=== PATIENT | male | born 1960 | race Caucasian/White ===

== ENCOUNTER 2020-02-25 11:52 | Outpatient (REF) | payer OTHER, SELFPAY ==
--- NOTE | 2020-02-25 12:33 | XR_ITS ---
EXAMINATION: CHEST AND LEFT HIP: CLINICAL INFORMATION: Back pain. Trochanteric bursitis left hip COMPARISON: None TECHNIQUE: Chest 2 views. Left hip 2 views. FINDINGS: CHEST: The lungs are well-expanded and clear of acute process. The heart size and pulmonary vascularity is normal. No gross bony abnormality seen. LEFT HIP: No visible acute fracture, dislocation or subluxation seen. There is mild loss of left hip joint space with periarticular spurring. The soft tissues are normal. XR/XR hip LT min 2V IMPRESSION: Unremarkable chest exam. Mild degenerative changes left hip joint.
--- NOTE | 2020-02-25 12:33 | XR_ITS ---
EXAMINATION: CHEST AND LEFT HIP: CLINICAL INFORMATION: Back pain. Trochanteric bursitis left hip COMPARISON: None TECHNIQUE: Chest 2 views. Left hip 2 views. FINDINGS: CHEST: The lungs are well-expanded and clear of acute process. The heart size and pulmonary vascularity is normal. No gross bony abnormality seen. LEFT HIP: No visible acute fracture, dislocation or subluxation seen. There is mild loss of left hip joint space with periarticular spurring. The soft tissues are normal. XR/XR chest 2V IMPRESSION: Unremarkable chest exam. Mild degenerative changes left hip joint.
[2020-02-25 13:12] LABS: MANUAL DIFF FLAG NO
[2020-02-25 13:20] LABS: Basophils Absolute Auto 0.1 X10*3/uL (0.0-0.2); Basophils Percent Auto 1.3 % (0-2); Eosinophils Absolute Auto 0.1 X10*3/uL (0.0-0.4); Hematocrit 46.5 % (42-52); Hemoglobin 14.2 g/dl (14.0-18.0); Imm Gran Abs Auto 0.03 X10*3/uL (0.00-0.03); Imm Gran Pct Auto 0.5 % (0.0-0.4); Lymphocytes Absolute Auto 1.6 X10*3/uL (1.2-4.9); Lymphocytes Percent Auto 28.4 % (20-40); Mean Corpuscular HGB Conc 30.5 g/dl (31.0-36.0); Mean Corpuscular Hemoglobin 28.1 pg (27.0-33.0); Mean Corpuscular Volume 91.9 fL (80-98); Mean Platelet Volume 10.2 fL (9.4-12.4); Monocytes Absolute Auto 0.5 X10*3/uL (0.1-1.2); Monocytes Percent Auto 8.6 % (2-11); Neutrophils Absolute Auto 3.3 X10*3/uL (2.0-8.3); Neutrophils Percent Auto 59.2 % (45-73); Platelet Count 332 X10*3/uL (160-400); Red Blood Count 5.06 X10*6/uL (4.60-5.80); Red Cell Distribution Width 12.6 % (11.0-16.0); White Blood Count 5.5 X10*3/uL (4.8-10.8)
[2020-02-25 13:33] LABS: Estimated Average Glucose 108 mg/dL; Hemoglobin A1C 125.0825 umol/L; Hemoglobin A1c % 5.4 %
[2020-02-25 13:59] LABS: Alanine Aminotransferase 21 U/L (0-40); Albumin Level 4.4 g/dL (3.5-5.0); Alkaline Phosphatase 82 U/L (39-117); Anion Gap 13 (12-20); Aspartate Amino Transferase 16 U/L (5-37); Bilirubin Total 0.6 mg/dL (0.0-1.0); Blood Urea Nitrogen 14 mg/dL (9-16); Calcium 9.1 mg/dL (8.4-10.2); Carbon Dioxide 27 mmol/L (22-29); Chloride 106 mmol/L (96-108); Cholesterol 222 mg/dL; Estimated Glomerular Filt Rate > 60; Glucose Random 102 mg/dL (60-115); HDL Cholesterol 47 mg/dL; LDL Cholesterol Calculated 137 mg/dl; Potassium 4.8 mmol/l (3.3-5.1); Sodium 141 mmol/L (135-145); Total Protein 7.3 g/dL (6.5-8.0); Triglycerides 191 mg/dL
[2020-02-25 14:13] LABS: Free T4 (Free Thyroxine) 0.92 ng/dL (0.71-1.85); Thyroid Stimulating Hormone 1.79 uIU/mL (0.32-4.0)
[2020-02-25 14:25] LABS: Folate 6.7 ng/mL (> or = 4.0); Vitamin B12 400 pg/mL (200-900)
[2020-02-27 03:53] LABS: Follicle Stimulating Hormone 2.5 mIU/mL (1.6-8.0); Lutenizing Hormone 1.8 mIU/mL (1.5-9.3); Prolactin 6.9 ng/mL (2.0-18.0)
[2020-03-01 21:58] LABS: Testosterone, Total 218 ng/dL (250-1100)
== END 2020-02-25 11:53 | disposition home or self-care (01) ==
LOC: HO.LAB 11:52
PROVIDERS: PCP Internal Medicine; Visit Provider Internal Medicine
DX: E55.9 Vitamin D deficiency, unspecified (principal); E78.00 Pure hypercholesterolemia, unspecified; N52.9 Male erectile dysfunction, unspecified; R73.01 Impaired fasting glucose; E66.01 Morbid (severe) obesity due to excess calories; M25.552 Pain in left hip; M54.5 Low back pain; Z68.41 Body mass index [BMI] 40.0-44.9, adult
CPT/HCPCS: 36415; 71046; 73502; 80053; 80061; 82607; 82746; 83001; 83002; 83036; 84146; 84403; 84439; 84443; 85025

== ENCOUNTER → 2020-05-22 14:15 | Outpatient (BNVA) | payer OTHER, SELFPAY | PROVIDERS: PCP Internal Medicine; Visit Provider Urology | DX: Z13.89 Encounter for screening for other disorder (principal) | CPT/HCPCS: 99212 ==

== ENCOUNTER 2021-06-03 09:04 | Outpatient (REF) | payer OTHER, SELFPAY ==
[2021-06-03 09:25] LABS: MANUAL DIFF FLAG NO
[2021-06-03 09:44] LABS: Basophils Absolute Auto 0.1 X10*3/uL (0.0-0.2); Basophils Percent Auto 0.9 % (0-2); Eosinophils Absolute Auto 0.1 X10*3/uL (0.0-0.4); Eosinophils Percent Auto 2.1 % (0-4); Hematocrit 44.7 % (42.0-52.0); Hemoglobin 13.8 g/dl (14.0-18.0); Imm Gran Abs Auto 0.04 X10*3/uL (0.00-0.03); Imm Gran Pct Auto 0.7 % (0.0-0.4); Lymphocytes Absolute Auto 1.5 X10*3/uL (1.2-4.9); Lymphocytes Percent Auto 26.2 % (20-40); Mean Corpuscular HGB Conc 30.9 g/dl (31.0-36.0); Mean Corpuscular Hemoglobin 27.7 pg (27.0-33.0); Mean Corpuscular Volume 89.8 fL (80.0-98.0); Mean Platelet Volume 9.6 fL (9.4-12.4); Monocytes Absolute Auto 0.5 X10*3/uL (0.1-1.2); Monocytes Percent Auto 7.9 % (2-11); Neutrophils Absolute Auto 3.6 x10*3/uL (2.0-8.3); Neutrophils Percent Auto 62.2 % (45-73); Platelet Count 332 X10*3/uL (160-400); Red Blood Count 4.98 X10*6/uL (4.60-5.80); Red Cell Distribution Width 12.4 % (11.0-16.0); White Blood Count 5.8 X10*3/uL (4.8-10.8)
[2021-06-03 10:22] LABS: Estimated Average Glucose 128 mg/dL; Hemoglobin A1c % 6.1 %
[2021-06-03 10:32] LABS: Alanine Aminotransferase 21 U/L (0-40); Albumin Level 4.1 g/dL (3.5-5.0); Alkaline Phosphatase 83 U/L (39-117); Anion Gap 13 (12-20); Aspartate Amino Transferase 16 U/L (5-37); Bilirubin Total 0.7 mg/dL (0.0-1.0); Blood Urea Nitrogen 15 mg/dL (9-16); Calcium 9.2 mg/dL (8.4-10.2); Carbon Dioxide 23 mmol/L (22-29); Chloride 106 mmol/L (96-108); Cholesterol 207 mg/dL; Estimated Glomerular Filt Rate > 60; Glucose Random 133 mg/dL (60-115); HDL Cholesterol 43 mg/dL; LDL Cholesterol Calculated 127 mg/dl; Potassium 4.3 mmol/L (3.3-5.1); Sodium 138 mmol/L (135-145); Triglycerides 188 mg/dL
[2021-06-03 10:42] LABS: Free T4 (Free Thyroxine) 1.01 ng/dL (0.71-1.85)
[2021-06-03 10:58] LABS: Folate 10.1 ng/mL (> or = 4.0); Vitamin B12 312 pg/mL (200-900)
[2021-06-10 13:21] LABS: Testosterone, Free 43.7 pg/mL (35.0-155.0); Testosterone, Total 195 ng/dL (250-1100)
== END 2021-06-03 09:05 | disposition home or self-care (01) ==
LOC: HO.LAB 09:04
PROVIDERS: PCP Internal Medicine; Visit Provider Internal Medicine
DX: E78.00 Pure hypercholesterolemia, unspecified (principal); N52.8 Other male erectile dysfunction; R73.01 Impaired fasting glucose
CPT/HCPCS: 36415; 80053; 80061; 82607; 82746; 83036; 84402; 84403; 84439; 84443; 85025

== ENCOUNTER 2021-07-02 08:04 | Outpatient (REF) | payer OTHER, SELFPAY ==
--- NOTE | ~2021-07-02 | XR_ITS ---
EXAMINATION: AP PELVIS AND LEFT HIP. CLINICAL INFORMATION: Pain left hip. COMPARISON: None TECHNIQUE: AP pelvis one view and left hip 2 views FINDINGS: There is mild loss of left hip joint space. The right hip joint space is maintained. There is no fracture dislocation involving the left hip or AP pelvis exam. The SI joints are symmetrical. The soft tissues are normal. XR/XR pelvis 1-2V IMPRESSION: Degenerative arthritic changes left hip joint. No visible acute fracture or dislocation seen.
--- NOTE | ~2021-07-02 | XR_ITS ---
EXAMINATION: AP PELVIS AND LEFT HIP. CLINICAL INFORMATION: Pain left hip. COMPARISON: None TECHNIQUE: AP pelvis one view and left hip 2 views FINDINGS: There is mild loss of left hip joint space. The right hip joint space is maintained. There is no fracture dislocation involving the left hip or AP pelvis exam. The SI joints are symmetrical. The soft tissues are normal. XR/XR hip LT min 2V IMPRESSION: Degenerative arthritic changes left hip joint. No visible acute fracture or dislocation seen.
== END 2021-07-02 08:05 | disposition home or self-care (01) ==
LOC: HO.HOSX 08:04
PROVIDERS: PCP Internal Medicine; Visit Provider Physician Assistant
DX: M16.12 Unilateral primary osteoarthritis, left hip (principal)
CPT/HCPCS: 72170; 73502; 99202

== ENCOUNTER 2022-07-07 12:51 | Outpatient (REF) | payer OTHER, SELFPAY ==
[2022-07-07 13:03] LABS: MANUAL DIFF FLAG NO
[2022-07-07 13:29] LABS: Basophils Absolute Auto 0.1 X10*3/uL (0.0-0.2); Basophils Percent Auto 1.1 % (0-2); Eosinophils Absolute Auto 0.1 X10*3/uL (0.0-0.4); Eosinophils Percent Auto 1.9 % (0-4); Hematocrit 43.7 % (42.0-52.0); Hemoglobin 13.7 g/dl (14.0-18.0); Imm Gran Abs Auto 0.03 X10*3/uL (0.00-0.03); Imm Gran Pct Auto 0.5 % (0.0-0.4); Immature Retic Fraction 14.2 % (2.3-13.4); Lymphocytes Absolute Auto 1.7 X10*3/uL (1.2-4.9); Lymphocytes Percent Auto 27.8 % (20-40); Mean Corpuscular HGB Conc 31.4 g/dl (31.0-36.0); Mean Corpuscular Hemoglobin 28.1 pg (27.0-33.0); Mean Corpuscular Volume 89.7 fL (80.0-98.0); Mean Platelet Volume 9.7 fL (9.4-12.4); Monocytes Absolute Auto 0.6 X10*3/uL (0.1-1.2); Neutrophils Absolute Auto 3.6 x10*3/uL (2.0-8.3); Neutrophils Percent Auto 58.7 % (45-73); Platelet Count 304 X10*3/uL (160-400); Red Blood Count 4.87 X10*6/uL (4.60-5.80); Red Cell Distribution Width 12.5 % (11.0-16.0); Reticulocyte Percent 2.1 % (0.5-1.8); Reticulocytes Absolute 0.102 X10*6/uL (0.026-0.095); White Blood Count 6.2 X10*3/uL (4.8-10.8)
[2022-07-07 14:30] LABS: Creatinine Urine 173.05 mg/dL; Microalbum/Creatinine Ratio Ur 6.9 ug/mg cr
[2022-07-07 14:43] LABS: Alanine Aminotransferase 17 U/L (0-40); Alkaline Phosphatase 75 U/L (39-117); Anion Gap 12 (12-20); Aspartate Amino Transferase 17 U/L (5-37); Blood Urea Nitrogen 12 mg/dL (9-16); Calcium 9.2 mg/dL (8.4-10.2); Carbon Dioxide 24 mmol/L (22-29); Chloride 109 mmol/L (96-108); Cholesterol 213 mg/dL; Estimated Glomerular Filt Rate > 60; Glucose Random 106 mg/dL (60-115); HDL Cholesterol 43 mg/dL; Iron 116 mcg/dL (45-160); LDL Cholesterol Calculated 143 mg/dl; Percent Iron Saturation 35 % (15-50); Potassium 4.3 mmol/L (3.3-5.1); Sodium 141 mmol/L (135-145); Total Iron Binding Capacity 333 mcg/dL (228-428); Total Protein 6.8 g/dL (6.5-8.0); Triglycerides 135 mg/dL; Unsaturated Iron Binding 217 ug/dL
[2022-07-07 15:01] LABS: Ferritin 101 ng/mL (20-250); Folate 7.2 ng/mL (> or = 4.0); Thyroid Stimulating Hormone 2.38 uIU/mL (0.32-4.0); Vitamin B12 299 pg/mL (200-900)
== END 2022-07-07 12:52 | disposition home or self-care (01) ==
LOC: HO.LAB 12:51
PROVIDERS: PCP Internal Medicine; Visit Provider Internal Medicine
DX: E11.65 Type 2 diabetes mellitus with hyperglycemia (principal); D64.9 Anemia, unspecified; E78.00 Pure hypercholesterolemia, unspecified
CPT/HCPCS: 36415; 80053; 80061; 82043; 82607; 82728; 82746; 83540; 84439; 84443; 85025; 85045

== ENCOUNTER 2023-02-09 10:09 | Outpatient (AMB) | payer OTHER, SELFPAY ==
[2023-02-09 10:10] VITALS: BP 138/90; PULSE 89; O2SAT 97; BMI 39.4
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
== END 2023-02-09 10:49 | disposition home or self-care (01) ==
PROVIDERS: PCP Internal Medicine; Visit Provider Nurse Practitioner Family
DX: M25.512 Pain in left shoulder (principal); M54.9 Dorsalgia, unspecified; V89.2XXA Person injured in unspecified motor-vehicle accident, traffic, initial encounter; Z04.3 Encounter for examination and observation following other accident
CPT/HCPCS: 99213

== ENCOUNTER 2023-02-13 09:20 | Outpatient (REF) | payer OTHER, SELFPAY ==
--- NOTE | ~2023-02-13 | XR_ITS ---
EXAMINATION: XR SHOULDER, LEFT CLINICAL INFORMATION: Pain in left shoulder COMPARISON: None available. TECHNIQUE: AP external rotation, Grashey, scapular Y, and axillary views of the left shoulder. FINDINGS: The bones are intact no fracture. Glenohumeral and acromioclavicular alignment is anatomic with normal glenohumeral joint space. Moderate degenerative change of acromioclavicular joint. No abnormal soft tissue calcifications. XR/XR shoulder LT min 2V IMPRESSION: Moderate degenerative change of the acromioclavicular joint.
--- NOTE | ~2023-02-13 | XR_ITS ---
EXAMINATION: XR THORACIC SPINE XR LUMBAR SPINE CLINICAL INFORMATION: Back pain. COMPARISON: Radiograph pelvis 07/02/2021. Radiographic chest 02/25/2020. Radiograph lumbar spine 12/23/2011. TECHNIQUE: 3 views of the thoracic spine and 3 views of the lumbar spine. FINDINGS: Thoracic Spine: Mild rightward curvature of the thoracic spine. Degenerative changes on limited images of the cervical spine could be evaluated with dedicated cervical spine images. Multilevel degenerative changes with mild hypertrophic change most notable in the pow-an-mumhs thoracic spine. Lumbar Spine: Slight leftward curvature of the lumbar spine. Facet arthritis in the dro-sn-fngga lumbar spine. Straightening of the normal lumbar lordosis. Advanced multilevel degenerative changes with multilevel loss of disc space height moderate to marked at L4-L5 and L5-S1. Rounded calcification in the right hemipelvis, likely vascular. Minimally imaged portion of left hip again demonstrate advanced degenerative changes which should be evaluated with dedicated radiographs of the hip. XR/XR lumbar spine 2-3V IMPRESSION: 1. Moderate multilevel degenerative disc disease most notable in the rty-wg-mklqs thoracic spine. 2. Advanced multilevel degenerative disc disease most notable at L4-L5 and L5-S1. 3. Facet arthritis in the dip-xz-iaiuo lumbar spine. 4. Degenerative changes on limited images of the cervical spine could be evaluated with dedicated cervical spine images.
--- NOTE | ~2023-02-13 | XR_ITS ---
EXAMINATION: XR THORACIC SPINE XR LUMBAR SPINE CLINICAL INFORMATION: Back pain. COMPARISON: Radiograph pelvis 07/02/2021. Radiographic chest 02/25/2020. Radiograph lumbar spine 12/23/2011. TECHNIQUE: 3 views of the thoracic spine and 3 views of the lumbar spine. FINDINGS: Thoracic Spine: Mild rightward curvature of the thoracic spine. Degenerative changes on limited images of the cervical spine could be evaluated with dedicated cervical spine images. Multilevel degenerative changes with mild hypertrophic change most notable in the qey-sn-zquqo thoracic spine. Lumbar Spine: Slight leftward curvature of the lumbar spine. Facet arthritis in the gqh-ee-xvmhd lumbar spine. Straightening of the normal lumbar lordosis. Advanced multilevel degenerative changes with multilevel loss of disc space height moderate to marked at L4-L5 and L5-S1. Rounded calcification in the right hemipelvis, likely vascular. Minimally imaged portion of left hip again demonstrate advanced degenerative changes which should be evaluated with dedicated radiographs of the hip. XR/XR thoracic spine 3V IMPRESSION: 1. Moderate multilevel degenerative disc disease most notable in the rfk-xl-wvsxz thoracic spine. 2. Advanced multilevel degenerative disc disease most notable at L4-L5 and L5-S1. 3. Facet arthritis in the mds-jz-vegsu lumbar spine. 4. Degenerative changes on limited images of the cervical spine could be evaluated with dedicated cervical spine images.
== END 2023-02-13 09:21 | disposition home or self-care (01) ==
LOC: HO.XRAY 09:20
PROVIDERS: PCP Internal Medicine; Visit Provider Nurse Practitioner Family
DX: M25.512 Pain in left shoulder (principal); M54.9 Dorsalgia, unspecified
CPT/HCPCS: 72072; 72100; 73030

== ENCOUNTER 2023-03-08 08:12 | Outpatient (AMB) | payer SELFPAY ==
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
[2023-03-08 08:13] VITALS: BP 136/88; PULSE 94; O2SAT 97; BMI 39.7
== END 2023-03-08 09:14 | disposition home or self-care (01) ==
PROVIDERS: PCP Internal Medicine; Visit Provider Internal Medicine
DX: M19.012 Primary osteoarthritis, left shoulder (principal); M47.815 Spondylosis without myelopathy or radiculopathy, thoracolumbar region; V89.2XXA Person injured in unspecified motor-vehicle accident, traffic, initial encounter; M25.552 Pain in left hip
CPT/HCPCS: 99214

== ENCOUNTER 2023-03-08 09:39 | Outpatient (REF) | payer OTHER, SELFPAY ==
--- NOTE | ~2023-03-08 | XR_ITS ---
EXAMINATION: XR HIP, LEFT CLINICAL INFORMATION: Pain in the left hip COMPARISON: X-ray the left hip June 2021. TECHNIQUE: Two views of the left hip. FINDINGS: There is persistent up to high-grade cartilage loss in the superolateral aspect of the hip joint with associated marginal osteophytes subchondral cystic change in [id number] appearance. Surrounding bone and soft tissues unremarkable. XR/XR hip LT min 2V IMPRESSION: Advanced osteoarthritis of the left hip. Unchanged
== END 2023-03-08 09:40 | disposition home or self-care (01) ==
LOC: HO.XRAY 09:39
PROVIDERS: PCP Internal Medicine; Visit Provider Internal Medicine
DX: M25.552 Pain in left hip (principal)
CPT/HCPCS: 73502

== ENCOUNTER 2023-04-05 14:17 | Outpatient (AMB) | payer OTHER, SELFPAY ==
[2023-04-05 14:20] VITALS: BP 160/98; PULSE 105; O2SAT 95; BMI 40.1
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
== END 2023-04-05 15:22 | disposition home or self-care (01) ==
PROVIDERS: PCP Internal Medicine; Visit Provider Internal Medicine
DX: M25.512 Pain in left shoulder (principal); V89.2XXA Person injured in unspecified motor-vehicle accident, traffic, initial encounter; M25.552 Pain in left hip; E11.65 Type 2 diabetes mellitus with hyperglycemia
CPT/HCPCS: 83036; 99213

== ENCOUNTER 2023-05-03 12:28 | Outpatient (AMB) | payer OTHER, SELFPAY ==
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
[2023-05-03 12:50] VITALS: BP 152/92; PULSE 89; O2SAT 98; BMI 39.8
== END 2023-05-03 13:44 | disposition home or self-care (01) ==
PROVIDERS: PCP Internal Medicine; Visit Provider Internal Medicine
DX: M25.512 Pain in left shoulder (principal); M25.552 Pain in left hip; V89.2XXA Person injured in unspecified motor-vehicle accident, traffic, initial encounter
CPT/HCPCS: 99213

== ENCOUNTER 2023-06-09 11:08 | Outpatient (AMB) | payer OTHER, SELFPAY ==
[2023-06-09 11:10] VITALS: BP 134/90; PULSE 86; O2SAT 97; BMI 39.8
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
== END 2023-06-09 12:29 | disposition home or self-care (01) ==
PROVIDERS: PCP Internal Medicine; Visit Provider Internal Medicine
DX: M25.552 Pain in left hip (principal); M25.512 Pain in left shoulder; V89.2XXA Person injured in unspecified motor-vehicle accident, traffic, initial encounter; Z04.2 Encounter for examination and observation following work accident
CPT/HCPCS: 99213

== ENCOUNTER 2023-06-14 14:13 | Outpatient (AMB) | payer OTHER, SELFPAY ==
[2023-06-14 15:01] VITALS: BP 136/86; PULSE 94; RESP 16; O2SAT 97; BMI 39.1
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
== END 2023-06-14 15:33 | disposition home or self-care (01) ==
PROVIDERS: PCP Internal Medicine; Referring Provider Internal Medicine; Visit Provider Registered Nurse Emergency
DX: M19.012 Primary osteoarthritis, left shoulder (principal); M16.12 Unilateral primary osteoarthritis, left hip
CPT/HCPCS: 99204

== ENCOUNTER → 2023-06-14 14:13 | Outpatient (BNVA) | payer OTHER, SELFPAY | PROVIDERS: PCP Internal Medicine; Referring Provider Internal Medicine; Visit Provider Registered Nurse Emergency | DX: M19.012 Primary osteoarthritis, left shoulder (principal); M16.12 Unilateral primary osteoarthritis, left hip | CPT/HCPCS: 99202 ==

== ENCOUNTER 2023-07-13 14:06 | Outpatient (AMB) | payer OTHER, SELFPAY ==
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
[2023-07-13 14:48] VITALS: BP 128/78; PULSE 108; O2SAT 97; BMI 40.3
== END 2023-07-13 15:33 | disposition home or self-care (01) ==
PROVIDERS: PCP Internal Medicine; Visit Provider Internal Medicine
DX: E11.65 Type 2 diabetes mellitus with hyperglycemia (principal); E66.01 Morbid (severe) obesity due to excess calories; Z68.41 Body mass index [BMI] 40.0-44.9, adult; M16.12 Unilateral primary osteoarthritis, left hip; K21.9 Gastro-esophageal reflux disease without esophagitis; E78.00 Pure hypercholesterolemia, unspecified; H57.89 Other specified disorders of eye and adnexa
CPT/HCPCS: 83036; 99214

== ENCOUNTER 2023-07-18 09:30 | Outpatient (REF) | payer OTHER, SELFPAY ==
[2023-07-18 10:04] LABS: MANUAL DIFF FLAG NO
[2023-07-18 10:53] LABS: Basophils Absolute Auto 0.1 X10*3/uL (0.0-0.2); Basophils Percent Auto 1.3 % (0-2); Eosinophils Absolute Auto 0.2 X10*3/uL (0.0-0.4); Eosinophils Percent Auto 3.3 % (0-4); Hematocrit 44.4 % (42.0-52.0); Hemoglobin 14.1 g/dl (14.0-18.0); Imm Gran Abs Auto 0.03 X10*3/uL (0.00-0.03); Imm Gran Pct Auto 0.6 % (0.0-0.4); Immature Retic Fraction 23.9 % (2.3-13.4); Lymphocytes Absolute Auto 1.8 X10*3/uL (1.2-4.9); Lymphocytes Percent Auto 32.8 % (20-40); Mean Corpuscular HGB Conc 31.8 g/dl (31.0-36.0); Mean Corpuscular Hemoglobin 28.1 pg (27.0-33.0); Mean Corpuscular Volume 88.4 fL (80.0-98.0); Mean Platelet Volume 10.1 fL (9.4-12.4); Monocytes Absolute Auto 0.6 X10*3/uL (0.1-1.2); Monocytes Percent Auto 10.3 % (2-11); Neutrophils Absolute Auto 2.8 x10*3/uL (2.0-8.3); Neutrophils Percent Auto 51.7 % (45-73); Platelet Count 308 X10*3/uL (160-400); Red Blood Count 5.02 X10*6/uL (4.60-5.80); Red Cell Distribution Width 12.6 % (11.0-16.0); Retic HGB Equivalent 30.4 pg (30.0-35.0); Reticulocyte Percent 2.5 % (0.5-1.8); Reticulocytes Absolute 0.127 X10*6/uL (0.026-0.095); White Blood Count 5.4 X10*3/uL (4.8-10.8)
[2023-07-18 11:53] LABS: Alanine Aminotransferase 15 U/L (0-40); Albumin Level 4.1 g/dL (3.5-5.0); Alkaline Phosphatase 81 U/L (39-117); Anion Gap 15 (12-20); Aspartate Amino Transferase 14 U/L (5-37); Bilirubin Total 0.5 mg/dL (0.0-1.0); Blood Urea Nitrogen 15 mg/dL (9-16); Calcium 9.5 mg/dL (8.4-10.2); Carbon Dioxide 25 mmol/L (22-29); Chloride 105 mmol/L (96-108); Cholesterol 201 mg/dL (<200); Estimated Glomerular Filt Rate > 60; Glucose Random 183 mg/dL (60-115); HDL Cholesterol 46 mg/dL (>40); Iron 86 mcg/dL (45-160); LDL Cholesterol Calculated 128 mg/dL (<100); Percent Iron Saturation 26 % (15-50); Potassium 3.9 mmol/L (3.3-5.1); Sodium 141 mmol/L (135-145); Total Iron Binding Capacity 336 mcg/dL (228-428); Total Protein 7.5 g/dL (6.5-8.0); Triglycerides 139 mg/dL (<150); Unsaturated Iron Binding 250 ug/dL
[2023-07-18 11:53] LABS: Microalbum/Creatinine Ratio Ur 8.5 ug/mg cr (<30)
[2023-07-18 12:01] LABS: Ferritin 71 ng/mL (20-250); Folate 10.3 ng/mL (> or = 4.0); Free T4 (Free Thyroxine) 0.97 ng/dL (0.71-1.85); Thyroid Stimulating Hormone 3.29 uIU/mL (0.32-4.0); Vitamin B12 376 pg/mL (200-900)
== END 2023-07-18 09:31 | disposition home or self-care (01) ==
LOC: HO.LAB 09:30
PROVIDERS: PCP Internal Medicine; Visit Provider Internal Medicine
DX: E11.65 Type 2 diabetes mellitus with hyperglycemia (principal); E78.00 Pure hypercholesterolemia, unspecified; D64.9 Anemia, unspecified
CPT/HCPCS: 36415; 80053; 80061; 82043; 82570; 82607; 82728; 82746; 83540; 84439; 84443; 85025; 85045

== ENCOUNTER 2023-07-27 10:14 | Outpatient (REF) | payer OTHER, SELFPAY ==
--- NOTE | ~2023-07-27 | XR_ITS ---
EXAMINATION: XR PELVIS CLINICAL INFORMATION: Pain COMPARISON: Hip radiographs 03/08/2023 TECHNIQUE: AP view of the pelvis. FINDINGS: No acute fracture or dislocation. Advanced osteoarthritis of the left hip with complete loss of superolateral joint space, subchondral sclerosis and cystic change, similar to prior. Calcified phleboliths in the pelvis. Right hip and sacroiliac joint spaces are maintained. XR/XR pelvis 1-2V IMPRESSION: Advanced osteoarthritis of the left hip similar to prior.
== END 2023-07-27 10:15 | disposition home or self-care (01) ==
LOC: HO.HOSX 10:14
PROVIDERS: PCP Internal Medicine; Visit Provider Orthopaedic Surgery
DX: M16.12 Unilateral primary osteoarthritis, left hip (principal)
CPT/HCPCS: 72170; 99212

== ENCOUNTER 2023-07-27 10:14 | Outpatient (AMB) | payer OTHER, SELFPAY ==
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
[2023-07-27 10:33] VITALS: BMI 40.3
== END 2023-07-27 11:26 | disposition home or self-care (01) ==
PROVIDERS: PCP Internal Medicine; Visit Provider Orthopaedic Surgery
DX: M16.12 Unilateral primary osteoarthritis, left hip (principal)
CPT/HCPCS: 99214

== ENCOUNTER → 2023-08-21 09:12 | Outpatient (BNVA) | payer OTHER, SELFPAY | PROVIDERS: PCP Internal Medicine | DX: Z01.818 Encounter for other preprocedural examination (principal) ==

== ENCOUNTER → 2023-09-06 14:07 | Outpatient (BNV) | payer OTHER, SELFPAY | PROVIDERS: Admitting Provider Orthopaedic Surgery; PCP Internal Medicine; Visit Provider Internal Medicine Cardiovascular Disease | DX: Z01.818 Encounter for other preprocedural examination (principal) | CPT/HCPCS: 93010 ==

== ENCOUNTER 2023-09-11 08:58 | Outpatient (AMB) | payer OTHER, SELFPAY ==
[2023-09-11 09:06] VITALS: BP 140/82; PULSE 84; O2SAT 98; BMI 40.6
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
== END 2023-09-11 09:27 | disposition home or self-care (01) ==
PROVIDERS: PCP Internal Medicine
DX: M25.552 Pain in left hip (principal); Z01.818 Encounter for other preprocedural examination; Z04.3 Encounter for examination and observation following other accident
CPT/HCPCS: 99214

== ENCOUNTER 2023-09-14 13:57 | Outpatient (AMB) | payer OTHER, SELFPAY ==
--- NOTE | 2023-09-14 14:11 | MHC.OFFVIS ---
Intake Visit Reasons: Pre-Op: L MANE w/NE 09/19/23 Allergies No Known Allergies [No Known Allergies*] Allergy (Verified 09/14/23 14:13) Medication List - Last Reconciled 09/14/23 by Tushar Cervantes PA-C blood pressure monitor (Blood Pressure Kit) As directed blood sugar diagnostic (FreeStyle Lite Strips) As directed check the BS QD blood-glucose meter (FreeStyle Lite Meter kit) As directed cane As directed lancets (FreeStyle Lancets) As directed check BS QD HPI Comments Details: Mr Vicente presents to the office today for preop visit. He is scheduled for left total hip arthroplasty with Dr. Evans. He continues to have ongoing pain and difficulty with ambulation in the left hip, which is affecting his quality of life; therefore, he has elected to move forward with surgery. [facility] Medical History Arthritis Low back pain Mild heartburn Upper back pain on left side Impaired fasting blood sugar Hypercholesterolemia Vitamin D deficiency Obesity Anemia Surgical History History of eye surgery History of colonoscopy Family History Father CVA (cerebral vascular accident) Mother No problems noted. 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 Cognitive needs: No Hearing needs: No Vision needs: No Review of Systems Const All systems reviewed & are unremarkable except as noted in HPI and below Physical Exam Const General: cooperative and no acute distress Orientation/consciousness: patient oriented x3 Neck Neck: Yes normal visual inspection and Yes no lymphadenopathy Resp Effort & Inspection: normal respiratory effort and able to speak in complete sentences Cardio Peripheral pulses: Peripheral pulses 2+ throughout GI Inspection: Yes normal to inspection Palpation (GI): Soft to palpation Skin General skin exam: no rashes or lesions noted Neuro General: patient oriented x3 Extrem Other: Left hip: Normal to inspection. No open wound or abrasion. He does have pain with ROM. Calf supple, nontender. NVI. Assessment & Plan Assessment & Plan (1) Osteoarthritis of left hip: Comment: Left hip February 2023 Code(s): M16.12 - Unilateral primary osteoarthritis, left hip Category: Medical Plan I discussed in detail the procedure and what to expect pre and post operatively. We discussed the risks, benefits and alternatives to the surgery as well as the rehabilitation course. The risks; which include, but are not limited to infection, bleeding, nerve injury, ongoing pain, swelling, and stiffness, perioperative risk of injury to bones and soft tissues, and blood clots. I?ve answered all questions and with their understanding they have consented to move forward with Left total hip arthroplasty with Dr. Evans Patient Instructions: Scribed for Tushar Cervantes PA-C, by Mickey Ford medical insurance coding specialist, on 09/14/2023 at 2:00 PM EST.? I, Tushar Cervantes PA-C, have personally reviewed and agree with the information entered by the scribe. Coding Level of Care Code Est Pt Level 3 (28560) Diagnoses Osteoarthritis of left hip M16.12
== END 2023-09-14 15:29 | disposition home or self-care (01) ==
PROVIDERS: PCP Internal Medicine; Visit Provider Physician Assistant
DX: M16.12 Unilateral primary osteoarthritis, left hip (principal)
CPT/HCPCS: 99024

== ENCOUNTER → 2023-09-14 13:57 | Outpatient (BNVA) | payer OTHER, SELFPAY | PROVIDERS: PCP Internal Medicine; Visit Provider Physician Assistant | DX: Z01.818 Encounter for other preprocedural examination (principal); M16.12 Unilateral primary osteoarthritis, left hip | CPT/HCPCS: 99212 ==

== ENCOUNTER 2023-09-19 09:47 | Inpatient (IN) | payer OTHER, SELFPAY ==
--- NOTE | 2023-09-06 | ECG_ITS ---
Test Reason : pre op Blood Pressure : / mmHG Vent. Rate : 095 BPM Atrial Rate : 095 BPM P-R Int : 166 ms QRS Dur : 094 ms QT Int : 356 ms P-R-T Axes : 050 018 001 degrees QTc Int : 447 ms Normal sinus rhythm Normal ECG When compared with ECG of 05-APR-2004 15:21, No significant change was found Referred By: Mindy Lehman Electronically Signed By:Floyd Fernandez
[2023-09-06 13:24] VITALS: BP 132/94; PULSE 97; RESP 16; O2SAT 95; BMI 40.6
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
[2023-09-11 11:55] LABS: MRSA Nasal PCR NEGATIVE (Negative); SA Nasal PCR NEGATIVE (Negative)
[2023-09-19] VITALS (12 sets, daily range): BP systolic 132–180; BP diastolic 74–105; PULSE 87–99; RESP 13–18; TEMP 36–37; O2SAT 93–97
--- NOTE | ~2023-09-19 | XR_ITS ---
EXAMINATION: XR PELVIS CLINICAL INFORMATION: Left total hip arthroplasty COMPARISON: 07/27/2023 TECHNIQUE: AP view of the pelvis. FINDINGS: Alignment is normal. The left femoral head prosthesis is well centered within the acetabular cup which exhibits normal lateral version. The tip of the noncemented femoral stem is well-positioned in the medullary cavity of the proximal femoral diaphysis. No endosteal scalloping or fracture around the femoral stem. There is mild postoperative soft tissue emphysema of the hip with lateral skin balta in place. The right hip is unremarkable. XR/XR pelvis 1-2V IMPRESSION: Satisfactory position and alignment of components of the left total hip arthroplasty. No periprosthetic fracture.
--- NOTE | 2023-09-19 09:43 | MHC.SHP ---
Pre-Procedural Eval Section A - 24 Hr Update-Section A only Date of Service: 09/19/23 The patient is an INPATIENT: No Changes since office visit: No Cold of Flu in the past 2 weeks, No New Medical Problems, No Changes in Medication and No Patient answered all questions The patient has been examined within 24 hours of the surgical procedure. The History & Physical has been completed within 30 days and I have reviewed it.: Yes Section B - Complete if H&P > 30 days Chief Complaint: Unilateral primary osteoarthritis, left hip Allergies: Allergies Allergy/AdvReac Type Severity Reaction Status Date / Time No Known Allergies Allergy Verified 09/14/23 14:13 [No Known Allergies*] Plan I have reviewed the history and physical and performed a pertinent physical examination on my patient. No changes have occurred unless specified. Time Spent With Patient Time: Total time managing care of this patient today ____ minutes.
[2023-09-19] MEDS: oxyCODONE HCl ER 10 MG TAB.ER.12H PO ×2 (10:07→20:59)
[2023-09-19] MEDS: Lactated Ringers 1,000 ML 100 ML IVCONT ×2 (10:40→19:32)
--- NOTE | 2023-09-19 17:00 | P.BOP_ITS ---
Brief Operative Note Date of Service: 09/19/23 Pre-op diagnosis: Left hip OA Post-op diagnosis: same Procedure: Left MANE Implants: Webber Trident 52/20 deg Accolade 2 #5 [id number] +0/36 ceramic Surgeon: Danny Evans MD Anesthesia: GETA and local Was an Certified Residential Medication Aide used for this Procedure?: No Certified Residential Medication Aide: Tushar Cervantes Estimated blood loss (mL): 250 IV fluids (mL): 1,100 Pathology: other Condition: stable Disposition: PACU Assessment and Plan (No Qualifiers) Assessment and Plan (1) Status post left hip replacement: Status: Acute Plan: Lovenox or Eliquis given BMI
--- NOTE | 2023-09-19 17:03 | W.PM.OPN ---
Operative Note Operative Note Date of Service: 09/19/23 Narrative: Date of Service: 09/19/23 Pre-op diagnosis: Left hip OA Post-op diagnosis: same Procedure: Left MANE Implants: [place] Trident 52/20 deg Accolade 2 #5 [id number] +0/36 ceramic Surgeon: Danny Evans MD Anesthesia: GETA and local Was an Maintenance Instructor used for this Procedure?: No Maintenance Instructor: Tushar Cervantes Estimated blood loss (mL): 250 IV fluids (mL): 1,100 Pathology: other Condition: stable Disposition: PACU Patient was brought into the operating room and placed in the right lateral decubitus position. All bony prominences were well padded and the limb was prepped and draped in standard sterile fashion. A time-out was called to identify proper site procedure proper surgeon IV antibiotics and 1 g of tranexamic acid were administered. I began by making a curvilinear incision over the posterolateral aspect of the greater trochanter. Dissection was taken down to the tensor fascia which was incised in line with the incision and a Charnley retractor was placed. Cautery was used to maintain hemostasis. The hip was internally rotated and the external rotators were identified. The vessels were cauterized and a full-thickness capsular/external rotator layer was developed starting just proximal to the piriformis. This layer was tagged and a dull Hohmann retractor was placed underneath the neck in the hip was dislocated. A neck cut was made 1 cm proximal to the lesser trochanter and the head and neck were removed and measured 48-49mm on the back table. The head was deformed and eburnated. I then removed the labrum and cauterized the fovea. I started with a 44 reamer and medialized to the inner table. I sequentially reamed up to a size 52 and impacted a 52mm cup at 45 degrees of inclination and 25 degrees of version. I then placed a 20 deg posterior lipped liner and turned my attention to the femur. I identified the piriformis insertion and used this as a starting point for my truman cutter. The medius tendon was protected with a Hibs retractor. A Charnley awl was inserted in the canal and a curved curette used to remove the lateral bone. I irrigated copiously. I then sequentially broached in the patient's natural version to a size 5 and placed my trial implants. I used a #5/127/+0 based on my pre-operative template. I removed all instrumentation and copiously irrigated. I placed my final femoral implant and again took the hip through range of motion and was satisfied with the stability and length. The final +0 implant was impacted in place and the hip reduced. I then irrigated copiously and placed 1 g of local tranexamic acid. I performed a capsular closure with 2.0 fiberwire, Britney's fascia with 0 Vicryl, subcuticular with 2-0 Vicryl and the skin with balta. Patient was placed into a sterile dressing. Patient was extubated brought to the recovery room in stable condition. There were no known complications.
[2023-09-19] MEDS: fentaNYL citrate/PF 100 MCG/2 ML VIAL 25 MCG IVPUSH ×4 (17:36→17:51)
[2023-09-19] MEDS: ondansetron HCL 4 MG/2 ML VIAL IVPUSH (19:32)
--- NOTE | 2023-09-19 20:02 | PC.NURSE ---
Patient came up to the floor from PACU bladder re-scanned as patient was c/o of urgency, bladder scanned for 531ml, straight catheter preformed, drained 475ml, some resistance met with advancement, procedure completed, patient c/o discomfort upon insertion.
--- NOTE | 2023-09-19 20:14 | PHA.MEDREC ---
Pharmacy Consult ? Medication Reconciliation Pharmacy has completed the medication reconciliation. Spoke with family in room with Patient and they confirmed he is only taking Fexofenidine 180mg tablet as needed for allergies and nothing else.
[2023-09-19 20:45] LABS: Glucose, Whole Blood 218 mg/dL (60-115)
--- NOTE | 2023-09-19 20:47 | HO.PM.IMCN ---
History of Present Illness Data of Consult Service Date: 09/19/23 Requesting physician: Tushar Cervantes Primary Care Provider: Edna Barnes MD [facility] Reason for consult: Medical management 62-year-old male with history of diet-controlled type 2 diabetes, hyperlipidemia, erectile dysfunction admitted to Orthopedic surgery for management of osteoarthritis of the left hip s/p MANE with consult placed hospitalist service for medical management. The patient is resting comfortably in bed accompanied by his . He is reporting some nausea but denies any vomiting, lightheadedness, palpitations, headache, shortness of breath, chest pain. He is experiencing some urinary urgency but has not yet voided since procedure. Postprocedure, vital signs have been stable though he does remain on 3 L supplemental O2 postoperatively. He is not oxygen dependent at home and suddenly history of chronic lung disease. Denies any history of LIAM though is noted to be morbidly obese with BMI greater than 40. Review of Systems Review of Systems: Yes all other systems are reviewed and are negative [facility] Medical History Arthritis Low back pain Mild heartburn Upper back pain on left side Impaired fasting blood sugar Hypercholesterolemia Vitamin D deficiency Obesity Anemia Family History Father CVA (cerebral vascular accident) Mother No problems noted. Brother Myocardial infarct Substance abuse Surgical History History of eye surgery History of colonoscopy Social History Housing: Apartment Are you a primary complex care nurse to a significant other at home: No Do you presently have visiting nurse or other home services: No Alcohol intake: current Alcohol intake frequency: holidays/special occasions only Comment: all counts correct Patient Tobacco Use Status: Former Tobacco user Tobacco use type: Cigarette Years Smoked: 1990 Smoked in Last 30 Days: No e-Cigarette/Vaping Use: Never Used Second Hand Smoke Exposure: No Use of substances other than those prescribed or required for medical reasons: No Have you been hit, kicked, punched, or otherwise hurt by someone within the past year? 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 Hydromorphone HCl (Hydromorphone Hcl 0.5 Mg/0.5 Ml Syringe) 0.25 mg IVPUSH Q4H PRN; Protocol PRN Reason: Pain, Severe (Pain Scale 7-10) Lactated Ringer's (Lr) 1,000 mls @ 100 mls/hr IVCONT .Q10H ERENDIRA Stop: 09/20/23 17:25 Last Admin: 09/19/23 19:32 Dose: 100 mls/hr Cefazolin Sodium/Dextrose (Ancef) 2 gm in 50 mls @ 100 mls/hr IV POSTOP ONE Stop: 09/19/23 21:29 Dextrose (D10) 250 mls @ 750 mls/hr IV Q15M PRN; Protocol PRN Reason: per Hypoglycemia Standing Ord. Insulin Human Lispro (Insulin Lispro 100 Unit/Ml 3 Ml Vial) 0 unit SUBCUT QIDACHS [facility]; Protocol Loratadine (Loratadine 10 Mg Tablet) 10 mg PO DAILY [facility] Ondansetron HCl (Ondansetron Hcl 4 Mg/2 Ml Vial) 4 mg IVPUSH Q8H PRN PRN Reason: Nausea and Vomiting Last Admin: 09/19/23 19:32 Dose: 4 mg Oxycodone HCl (Oxycodone Hcl Immed Release 5 Mg Tablet) 5 mg PO Q4H PRN PRN Reason: Pain, Moderate(Pain Scale 4-6) Oxycodone HCl (Oxycodone Hcl Er 10 Mg Tab.Er.12h) 10 mg PO BID ERENDIRA Senna (Sennosides 8.6 Mg Tablet) 17.2 mg PO BEDTIME ERENDIRA Sodium Chloride (0.9 % Sodium Chloride Flush 3 Ml Syringe) 3 ml IVFLUSH QSHIFT ERENDIRA Home Medications ?Medication ?Instructions ?Recorded ?Confirmed ?Last Taken ?Type fexofenadine 180 mg tablet 180 mg PO DAILY PRN Allergies 09/19/23 09/19/23 Unknown History Physical Exam Vital Signs and Narrative: Vital Signs: Last Vital Signs Temp 96.8 F 09/19/23 18:44 Pulse 94 09/19/23 18:44 Resp 18 09/19/23 18:44 BP 137/89 09/19/23 18:44 Pulse Ox 94 09/19/23 18:44 O2 Del Method Nasal Cannula 09/19/23 18:44 O2 Flow Rate 3 09/19/23 18:44 BMI result Body Mass Index 40.6 Constitutional - Awake and Alert, No apparent distress Eyes - PERRLA, EOMI Cardiovascular - S1S2, RRR, No edema Respiratory - Normal lung expansion, Normal respiratory effort, No respiratory distress, CTA bilaterally Gastrointestinal - NT / ND; +BS; No rebound or guarding Extremities - no calf tenderness bilaterally, no swelling Skin - Warm/Dry Neurological - Alert & oriented x3 Psychological - Appropriate affect Results Labs Labs: Laboratory Results - last 24 hr 09/06/23 09/19/23 14:05 20:41 POC Glucose 218 H Blood Type A Positive Antibody Screen POSITIVE Antibody Identification Negative Crossmatch (AHG) See Detail Assessment and Plan (1) Status post left hip replacement: Status: Acute Plan 62-year-old male with history of diet-controlled type 2 diabetes, hyperlipidemia, erectile dysfunction admitted to Orthopedic surgery for management of osteoarthritis of the left hip s/p MANE with consult placed hospitalist service for medical management. # osteoarthritis of left hip s/p MANE pod 0 -plan including pain management per Orthopedic surgery # postoperative hypoxia -wean supplemental O2 as tolerated per protocol. No history of chronic lung disease. Lungs clear to auscultation -incentive spirometry # diet-controlled type 2 diabetes -last hemoglobin A1c 6.3% -POC glucose, diabetic diet -Humalog on sliding scale p.r.n. for hyperglycemia Thank you for allowing me to participate in this consult. Signing off at this time. Please do not hesitate to call for further questions or for any acute medical issues that should arise
[2023-09-19] MEDS: Celecoxib 200 MG CAPSULE PO (20:59)
[2023-09-19] MEDS: Sennosides 8.6 MG TABLET 17.2 MG PO (20:59)
[2023-09-19] MEDS: ceFAZolin Sodium/Dextrose,Iso 2 GM/50 ML PIGGYBACK IV (21:02)
--- NOTE | 2023-09-19 21:22 | P.DS_ITS ---
DS: Providers Provider Date of Service: 09/20/23 Date of admission: 09/19/23 09:47 Primary care physician: Edna Barnes MD Consults: 09/19/23 18:33 Consult to Hospitalist Routine Comment: Consulting Provider: Hospitalist Reason For Exam: diabetic management DS: Diagnosis Discharge Diagnosis (1) Status post left hip replacement: Status: Acute DS: Summary Hospital Course Hospital Course: The patient underwent a successful left total hip arthroplasty, they were transferred to PACU and then to the floor to recover. During their stay, their vitals were stable, afebrile at 98.1. Labs were unremarkable, H/H 11.2/35.8. POD 1 they were started on Lovenox for DVT ppx, they also received Physical Therapy. Prior to discharge, their dressing was clean dry and intact, and the plan was to be discharged home with VNA services. Time Attestation Discharge Coordination Time (in mins): 30 Quality: Safe Use of Opioids Does Pt have an Active Cancer Diagnosis on the Problem List?: No Quality: Stroke Does the patient have a stroke diagnosis?: No Physical Exam Vital Signs: Vital Signs: Last Vital Signs Temp 96.8 F 09/19/23 18:44 Pulse 94 09/19/23 18:44 Resp 18 09/19/23 18:44 BP 137/89 09/19/23 18:44 Pulse Ox 94 09/19/23 18:44 O2 Del Method Nasal Cannula 09/19/23 18:44 O2 Flow Rate 3 09/19/23 18:44 BMI result Body Mass Index 40.6 Const: General: cooperative, healthy appearing and no acute distress Resp: Effort & Inspection: normal respiratory effort and able to speak in complete sentences Cardio: Rate: regular rate Peripheral pulses: Peripheral pulses 2+ throughout GI: Palpation (GI): Soft to palpation Skin: Lesions: no lesions Rashes: no rashes Extrem: Other: left hip dressing is c/d/i. Able to dorsi/plantar flex. Calf is supple and nontender. Sensation intact. Pedal pulse intact. DS: Data Data Completed and Pending Pending studies at discharge: Pending at discharge 09/19/23 16:38 Surgical [PTH] Routine Labs on day of discharge: Laboratory Results - last 24 hr 09/06/23 09/19/23 14:05 20:41 POC Glucose 218 H Blood Type A Positive Antibody Screen POSITIVE Antibody Identification Negative Crossmatch (AHG) See Detail Discharge Plan Discharge Anticipated Discharge Date/Time: 09/20/23 13:20 Patient Disposition: Home Health Service Discharge Diagnosis: s/p LTHA Referrals: Tushar Cervantes PA-C [Phys[employer]] - 10/05/23 12:30 pm Discharge Medications: New celecoxib 200 mg Capsule 200 mg PO BID 30 Days Qty: 60 0RF sennosides [Senna Lax] 8.6 mg Tablet 17.2 mg PO BEDTIME 30 Days Qty: 60 0RF acetaminophen 325 mg Tablet 650 mg PO Q6H PRN (Reason: Pain, Mild (Pain Scale 1-3), fever or headache) 30 Days Qty: 240 0RF oxycodone 5 mg Tablet 5 mg PO Q4H PRN (Reason: Pain, Moderate(Pain Scale 4-6)) 7 Days Qty: 42 0RF Rx Instructions: Partial Fill upon patient request. enoxaparin 40 mg/0.4 mL Syringe 40 mg subcut Q24H 42 Days Qty: 16.8 0RF Continued fexofenadine 180 mg tablet 180 mg PO DAILY PRN (Reason: Allergies) (DME) blood-glucose meter [FreeStyle Lite Meter] Kit See Rx Instructions .ROUTE .MEDSUPPLY Qty: 1 0RF Rx Instructions: As directed (DME) FreeStyle Lite Strips Strip See Rx Instructions .ROUTE .MEDSUPPLY Qty: 100 3RF Rx Instructions: As directed check the BS QD (DME) lancets [FreeStyle Lancets] 28 gauge misc See Rx Instructions .ROUTE .MEDSUPPLY Qty: 100 3RF Rx Instructions: As directed check BS QD (DME) blood pressure monitor [Blood Pressure Kit] Kit See Rx Instructions .ROUTE .MEDSUPPLY Qty: 1 0RF Rx Instructions: As directed (DME) cane Device See Rx Instructions .Route Qty: 1 0RF Rx Instructions: As directed Discharge Orders: Discharge Order (Routine); Ordered 09/20/23 Ordered By: Tejal Infante Diet: Advance to usual diet Activity on Discharge: Use cane or walker Stand Alone Forms: Patient Portal Discharge page Print Language: Turkish Care Plan Goals: restore fxn to left hip Health Concerns: none Plan of Treatment: Physical Therapy for total hip arthroplasty: posterior precautions, gait training, ROM, strength Limit stair climbing No showering, no tub bath-keep dressing clean, dry and intact No driving x6 weeks Continue Lovenox x [address] [facility] in 2 weeks Assessment: stable for d/c
--- NOTE | 2023-09-19 21:23 | P.F2F_ITS ---
Service Date Service Date: 09/19/23 Encounter Date of encounter: 09/20/23 Reasons for Services Signs and symptoms assessed: s/p LTHA Pt. is considered homebound due to recent surgery. Unable to drive, poor balance, poor gait mechanics. Reason for physical therapy: home safety and mobility, therapeutic exercises, restore joint function, gait/transfer training, assess need for DME and ADL training Reason for occupational therapy: home safety and mobility, therapeutic exercises, restore joint function, gait/transfer training, assess need for DME and ADL training Homebound: Leaving the home is medically contraindicated at this time without the asist of a device and/or another person due th the listed conditions above and below. Reason homebound: unsteady gait / fall risk, leg weakness, pain with ambulation, pain with transfers, poor balance / fall risk and unable to drive Certification: Based on the above findings, I certify that this patient is confined to the home and needs intermittent retirement care, physical therapy and/or speech therapy, or continues to need occupational therapy. The patient is under my care, and I have initiated the establishment of the plan of care. The patient will be followed by a physician who will periodically review the plan of care. Time Spent With Patient Time: Total time managing care of this patient today ____ minutes.
[2023-09-20 03:56] VITALS: BP 141/64; PULSE 104; RESP 18; TEMP 36.7; O2SAT 94
[2023-09-20] MEDS: Lactated Ringers 1,000 ML 100 ML IVCONT (04:56)
[2023-09-20 06:11] LABS: MANUAL DIFF FLAG NO
[2023-09-20 06:36] LABS: Anion Gap 15 (12-20); Blood Urea Nitrogen 14 mg/dL (9-16); Calcium 9.1 mg/dL (8.4-10.2); Carbon Dioxide 24 mmol/L (22-29); Chloride 105 mmol/L (96-108); Creatinine Clr Calc Pharmacy 102.3; Estimated Glomerular Filt Rate > 60; Glucose Fasting 160 mg/dL (60-99); Potassium 5.1 mmol/L (3.3-5.1); Sodium 139 mmol/L (135-145)
[2023-09-20 06:37] LABS: Basophils Percent Auto 0.1 % (0-2); Hematocrit 35.8 % (42.0-52.0); Hemoglobin 11.2 g/dl (14.0-18.0); Imm Gran Abs Auto 0.05 X10*3/uL (0.00-0.03); Imm Gran Pct Auto 0.6 % (0.0-0.4); Lymphocytes Absolute Auto 0.6 X10*3/uL (1.2-4.9); Lymphocytes Percent Auto 7.5 % (20-40); Mean Corpuscular HGB Conc 31.3 g/dl (31.0-36.0); Mean Corpuscular Hemoglobin 28.4 pg (27.0-33.0); Mean Corpuscular Volume 90.6 fL (80.0-98.0); Mean Platelet Volume 10.1 fL (9.4-12.4); Monocytes Absolute Auto 0.7 X10*3/uL (0.1-1.2); Monocytes Percent Auto 8.6 % (2-11); Neutrophils Absolute Auto 7.1 x10*3/uL (2.0-8.3); Neutrophils Percent Auto 83.2 % (45-73); Platelet Count 260 X10*3/uL (160-400); Red Blood Count 3.95 X10*6/uL (4.60-5.80); Red Cell Distribution Width 12.5 % (11.0-16.0); White Blood Count 8.5 X10*3/uL (4.8-10.8)
[2023-09-20] MEDS: oxyCODONE HCl Immed Release 5 MG TABLET PO ×2 (07:11→11:40)
[2023-09-20] MEDS: oxyCODONE HCl ER 10 MG TAB.ER.12H PO (07:12)
[2023-09-20] MEDS: Loratadine 10 MG TABLET PO (07:12)
[2023-09-20] MEDS: Celecoxib 200 MG CAPSULE PO (07:12)
[2023-09-20 07:39] VITALS: BP 112/55; PULSE 103; RESP 18; TEMP 36.7; O2SAT 92
[2023-09-20 07:58] LABS: Glucose, Whole Blood 143 mg/dL (60-115)
[2023-09-20] MEDS: Enoxaparin Sodium 40 MG/0.4 ML SYRINGE SUBCUT (08:54)
[2023-09-20 09:05] VITALS: PULSE 127; O2SAT 93
--- NOTE | 2023-09-20 09:35 | HO.POSTANES ---
Post Anesthesia Evaluation Post Anesthesia Evaluation Date of Service: 09/20/23 Vital Signs: Vital Signs Temp Pulse Resp BP Pulse Ox O2 Del Method O2 Flow Rate 09/20/23 09:05 127 H 93 09/20/23 07:39 98.1 F 103 H 18 112/55 L 92 Room Air 09/20/23 03:56 98.1 F 104 H 18 141/64 H 94 Nasal Cannula 2 Anesthesia: Spinal Mental Status: Awake Pain Control: Satisfactory Nausea/Vomiting: None Hydration: Adequate Anesthesia-Related Issues: No Anes. Related Issues
--- NOTE | 2023-09-20 10:28 | MHC.CM.PN ---
Addendum entered by Estephanie Hughes RN 09/20/23 12:29: [facility] FOR SN/PT, DME SCRIPTS FAXED TO [facility] PER FAMILY REQUEST Original Note: EMR REVIEWED, PT ADMITTED S/P LEFT MANE, CM MET W/PT VIA SKI PATROL OFFICER, PER PT HE SHOULD BE UNDER HIS MH PLAN NOT HIS WORKMANS COMP, [facility] UPDATED AND CONT TO DECLINE REFERRAL, [facility] ALSO DECLINING D/T STAFF SHORTAGE, REFERRAL EXPANDED TO 21 ADDITIONAL LOCAL VNA'S HOWEVER ANTIC PT WILL BE DIFFICULT TO OBTAIN SERVICES FOR D/T [facility] MEDICAID PLAN. PT REPORTS HE LIVES W/HIS , IS INDEP W/ALL CARE AT BASELINE, PT REQUESTING SCRIPTS FOR TOILET RISER AND FWW, NO HOME SERVICES, PT VERIFIES PCP ON FILE IS CORRECT AND HCP IS PT'S ZAKI RIVERA, COPY REQUESTED. DCP: HOME W/NEW VNA FOR PT AND FAMILY FOR TRANSPORT, ORTHO PA AWARE PT WILL NEED FWW/TOILET RISER SCRIPTS ON DC.
--- NOTE | 2023-09-20 12:16 | MHC.CM.PN ---
IMM 09/20/23, PT MEDICALLY CLEARED FOR DC HOME W/RESUMP OF [facility] w/LAB DRAW 09/21, PT'S SISTER FOR TRANSPORT
== END 2023-09-20 12:46 | disposition home health service (06) | DRG 324 ==
LOC: HO.SSSA 14:49 → HO.S3 17:49
PROVIDERS: Nurse Practitioner; Physician Assistant; Admitting Provider Orthopaedic Surgery; PCP Internal Medicine; Visit Provider Orthopaedic Surgery
PROC: 0SRB03A Replacement of Left Hip Joint with Ceramic Synthetic Substitute, Uncemented, Open Approach (ICD-10-PCS; CPT 27130; principal; 2023-09-19 14:10)
DX: M16.12 Unilateral primary osteoarthritis, left hip (principal); R09.02 Hypoxemia; E11.9 Type 2 diabetes mellitus without complications; Z87.891 Personal history of nicotine dependence; Z79.899 Other long term (current) drug therapy
CPT/HCPCS: 36415; 72170; 80048; 82947; 85025; 86850; 86870; 86900; 86901; 86920; 86922; 87640; 87641; 88304; 88311; 93005; 97161; 97165; 97535; C1776; J0131; J0690; J1170; J1650; J2250; J2405; J2704; J2795; J3010; J7120

== ENCOUNTER → 2023-09-19 09:47 | Outpatient (BNV) | payer OTHER, SELFPAY | PROVIDERS: Admitting Provider Orthopaedic Surgery; PCP Internal Medicine; Visit Provider Orthopaedic Surgery | DX: M16.12 Unilateral primary osteoarthritis, left hip (principal) | CPT/HCPCS: 27130; 99024; G0180 ==

== ENCOUNTER → 2023-09-19 09:47 | Outpatient (BNV) | payer OTHER, SELFPAY | PROVIDERS: Admitting Provider Orthopaedic Surgery; PCP Internal Medicine; Visit Provider Physician Assistant | DX: Z96.642 Presence of left artificial hip joint (principal) | CPT/HCPCS: 99222 ==

== ENCOUNTER 2023-10-05 12:17 | Outpatient (AMB) | payer OTHER, SELFPAY ==
--- NOTE | 2023-10-05 12:27 | MHC.OFFVIS ---
Vital Signs 10/05/23 12:28 Height 5 ft 5 in Weight 244 lb BMI 40.6 Intake Visit Reasons: 2WK PO: L MANE w/NE 09/19/23 Intake Note: Stanislaw is a 62 yo male who presents today with his health proxy for 2 WK PO s/p left MANE done by NE on 09/19/23. Patient reports he is feeling better since surgery. Reports no concerns or pain today. Patient is asking if he can start taking showers. He has been using a walker for ambulatory aid. He reports he has been unable to obtain shower chair. Allergies No Known Allergies [No Known Allergies*] Allergy (Verified 10/05/23 12:29) HPI HPI 2WK PO: L MANE w/NE 09/19/23: Details: 62-year-old male who returns to the office today with his health proxy for post-op left MANE, 09/19/[address] Evans. He states he has no pain in his hip and is doing well overall. He uses a walker for ambulation. He has no concerns today. [facility] Medical History Arthritis Low back pain Mild heartburn Upper back pain on left side Impaired fasting blood sugar Hypercholesterolemia Vitamin D deficiency Obesity Anemia Surgical History History of eye surgery History of colonoscopy Family History Father CVA (cerebral vascular accident) Mother No problems noted. 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 No redness or drainage. NVI. Assessment & Plan Assessment & Plan (1) Status post left hip replacement: Comment: August 2023 Code(s): Z96.642 - Presence of left artificial hip joint Category: Surgical Plan Ian removed, steri strips applied. He will continue with jam PT for gait training and strength. No driving for another 4 weeks. He will require ppx abx for dental procedures. He will f/u in 4 weeks, sooner if needed. Patient Instructions: Scribed for Tushar Cervantes PA-C, by Mickey Ford medical director of hospice, on 10/05/2023 at 12:30 PM EST.? I, Tushar Cervantes PA-C, have personally reviewed and agree with the information entered by the scribe. Coding Level of Care Code Global (06235) Diagnoses Status post left hip replacement Z96.642
[2023-10-05 12:28] VITALS: BMI 40.6
== END 2023-10-05 13:09 | disposition home or self-care (01) ==
PROVIDERS: PCP Internal Medicine; Visit Provider Physician Assistant
DX: Z96.642 Presence of left artificial hip joint (principal)
CPT/HCPCS: 99024

== ENCOUNTER → 2023-10-05 12:17 | Outpatient (BNVA) | payer OTHER, SELFPAY | PROVIDERS: PCP Internal Medicine; Visit Provider Physician Assistant | DX: Z47.1 Aftercare following joint replacement surgery (principal); Z96.642 Presence of left artificial hip joint | CPT/HCPCS: 99212 ==

== ENCOUNTER 2023-11-03 09:36 | Outpatient (AMB) | payer OTHER, SELFPAY ==
--- NOTE | 2023-11-03 09:44 | MHC.OFFVIS ---
Vital Signs 11/03/23 09:45 Height 5 ft 5 in Weight 244 lb BMI 40.6 Intake Visit Reasons: 6WK PO: L MANE w/NE 09/19/23 Intake Note: Stanislaw is a 62 year old male who presents today for a post operative appointment s/p left MANE done by NE on 09/19/23. Patient is brazilian speaking but declined use of color specialist as he would like his to interpret for him. Patient reports that he is dong well, he has some mild discomfort/pain in the groin with ambulation. Pain post operatively is much better than the pain felt preoperatively. Allergies No Known Allergies [No Known Allergies*] Allergy (Verified 10/05/23 12:29) HPI HPI 6WK PO: L MANE w/NE 09/19/23: Details: Stanislaw is a 62 year old male who presents today for a post operative appointment s/p left MANE done by NE on 09/19/23. Patient is brazilian speaking but declined use of color specialist as he would like his to interpret for him. Patient reports that he is dong well, he has some mild discomfort/pain in the groin with ambulation. Pain post operatively is much better than the pain felt preoperatively. [facility] Medical History Arthritis Low back pain Mild heartburn Upper back pain on left side Impaired fasting blood sugar Hypercholesterolemia Vitamin D deficiency Obesity Anemia Surgical History History of eye surgery History of colonoscopy Family History Father CVA (cerebral vascular accident) Mother No problems noted. 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 Outpatient PT. f/u 6 weeks Orders: Orders PT Evaluation and Treatment Today Z96.642 - Presence of left artificial hip joint Coding Level of Care Code Global (08317) Diagnoses Status post left hip replacement Z96.642
[2023-11-03 09:45] VITALS: BMI 40.6
== END 2023-11-03 10:22 | disposition home or self-care (01) ==
PROVIDERS: PCP Internal Medicine; Visit Provider Orthopaedic Surgery
DX: Z96.642 Presence of left artificial hip joint (principal)
CPT/HCPCS: 99024

== ENCOUNTER → 2023-11-03 09:36 | Outpatient (BNVA) | payer OTHER, SELFPAY | PROVIDERS: PCP Internal Medicine; Visit Provider Orthopaedic Surgery | DX: Z47.1 Aftercare following joint replacement surgery (principal); Z96.642 Presence of left artificial hip joint | CPT/HCPCS: 99212 ==

== ENCOUNTER 2023-12-11 13:24 | Outpatient (AMB) | payer OTHER, SELFPAY ==
--- NOTE | 2023-12-11 13:34 | A.OFFPC_ITS ---
Vital Signs 12/11/23 13:35 Height 5 ft 5 in Weight 244 lb 6 oz BMI 40.7 BP 130/70 Blood Pressure Location Lt brachial Position Sitting Pulse 106 H Pulse Source Pulse Oximeter Pulse Oximetry (%) 94 Oxygen Delivery Method Room Air Intake Visit Reasons: morbid ObesityDM, cholesterol Intake Note: Patient is here to follow up on Morbid Obesity, DM, Cholesterol. Airborne Electronics Analyst Required: No Operational Meteorologist: Present Accompanied by: Friend Allergies No Known Allergies [No Known Allergies*] Allergy (Verified 12/11/23 13:35) Tobacco use date assessed: 12/11/23 Dental Screening Dental Screen Date: 05/03/23 HPI morbid ObesityDM, cholesterol HPI Details 63-year-old morbidly obese male with his tory of left hip pain and underwent left total hip arthroplasty. September 19 2023. under Orthopedics. Patient has a history of diabetes mellitus GERD hypercholesterolemia hypo gonadism coming in for follow-up. Last seen [id number]. Patient has been advised physical therapy. [facility], [facility] Medical History (Updated 12/11/23 @ 14:19 by Edna Barnes MD) Arthritis Low back pain Mild heartburn Upper back pain on left side Impaired fasting blood sugar Hypercholesterolemia Vitamin D deficiency Obesity Anemia Surgical History (Updated 12/11/23 @ 13:43 by CAROL Mcclure) History of total left hip replacement History of eye surgery History of colonoscopy Family History Father CVA (cerebral vascular accident) Mother No problems noted. 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 Physical exam (Primary Care) Vital Signs: Last Vital Signs Pulse 106 H 12/11/23 13:35 BP 130/70 12/11/23 13:35 Pulse Ox 94 12/11/23 13:35 Oxygen Delivery Method Room Air 12/11/23 13:35 BMI result Body Mass Index 40.7 Tobacco/Smoking Status: Tobacco use Status Tobacco use date assessed 12/11/23 12/11/23 13:46 Patient Tobacco Use Status Former Tobacco user 12/11/23 13:46 Tobacco use type Cigarette 12/11/23 13:46 e-Cigarette/Vaping Use Never Used 12/11/23 13:46 Thrive Assessment: Date of Thrive Assessment Date Thrive assessed 09/20/23 12/11/23 13:46 Const General: alert; No acute distress Eyes Conjunctivae: conjunctivae normal Resp Auscultation: clear to auscultation bilaterally Cardio Rate: regular rate Rhythm: regular rhythm GI Inspection: Yes normal to inspection Extrem General: Yes normal to inspection and No edema Office Procedures Flu Questionnaire Does the patient have a severe egg allergy?: No Does the patient have severe life threatening allergies?: No Does the patient have a fever or illness today?: No Has the patient ever had Guillain-Capitola Syndrome?: No Has the patient ever had any past reaction to a flu shot?: No Results AMB Hemoglobin A1c AMB Hemoglobin A1c 7.0 % Last Edit by CAROL Mcclure on 12/11/23 13:48 Immunizations Fluarix Triv [id number] (PF) 45 mcg (15 mcg x 3)/0.5 mL IM syringe Performing Provider: Edna Barnes MD [facility] Administered by: Flori Roland LPN on 12/11/23 13:52 Dose Route Admin Location Dispensed Lot Number Expiration Date NDC Ha[employer] Truck [employer] 0.5 mL IM Left Deltoid 0.5 mL [id number] 08/26/24 [id number] Rogate VIS Given Date VIS Provided VIS Publication Date 12/11/23 Single Vaccine 20 Eligibility Eligibility Date Funding Source Not [facility] Eligible 12/11/23 Private Results Reviewed Results Reviewed: Laboratory Last Values Hgb A1c (Clinic) 7.0 % (4.0-6.0) H 12/11/23 13:34 Coding Level of Care Code Est Pt Level 4 (45377) Complex EM visit Add On G2211 Diagnoses Status post left hip replacement Z96.642 Morbid obesity E66.01 Type 2 diabetes mellitus with hyperglycemia E11.65 GERD (gastroesophageal reflux disease) K21.9 Hypercholesterolemia E78.00 Lumbar degenerative disc disease M51.369 Assessment & Plan Assessment & Plan (1) Status post left hip replacement: Comment: August 2023 Code(s): Z96.642 - Presence of left artificial hip joint Category: Surgical Plan: Continue to follow-up with orthopedics and was advised physical therapy. (2) Morbid obesity: Code(s): E66.01 - Morbid (severe) obesity due to excess calories Category: Medical Plan: Diet and exercise (3) Type 2 diabetes mellitus with hyperglycemia: Comment: [facility] Code(s): E11.65 - Type 2 diabetes mellitus with hyperglycemia Category: Medical Plan: Decrease the amount of carbohydrate intake, pasta, bread, rice and potatoes are all sugar and that is aside from all the sweet stuff, remember that fruits are good but they are Sweet also. Hemoglobin A1c goal of less than 6.5. Patient is presently not on any medication. And declined to be on 1 medication right now (4) GERD (gastroesophageal reflux disease): Code(s): K21.9 - Gastro-esophageal reflux disease without esophagitis Category: Medical Plan: Avoid the foods that causes that usually spicy foods, tomato products, juices, coffee, soda and foods that your sensitive to. After eating do not lie down, allow 3-4 hours before in lie down. And keep the head of bed above 30 degrees to avoid the acid from going up. (5) Hypercholesterolemia: Code(s): E78.00 - Pure hypercholesterolemia, unspecified Category: Medical Plan: Avoid fried foods, chicken skin, eggs, butter margarine, pastries and meat. Be it pork or beef they have a lot of cholesterol LDL goal of less than 100 and triglyceride of less than 150 last blood work was done in 07/17/2023.. Patient declined having medication for now (6) Lumbar degenerative disc disease: Code(s): M51.369 - Other intervertebral disc degeneration, lumbar region without mention of lumbar back pain or lower extremity pain Category: Medical Plan: Discussed with the patient that the x-ray what that was done in 02/15/2023 shows marked degenerative disc problem. Would like to have physical therapy done. Orders: Orders Influenza [id number] Immunization Today Z23 - Encounter for immunization PT Evaluation and Treatment Today M51.369 - Other intervertebral disc degeneration, lumbar region without mention of lumbar back pain or lower extremity pain Complete Blood Count Auto Diff Today E11.65 - Type 2 diabetes mellitus with hyperglycemia Reticulocyte Count Today E11.65 - Type 2 diabetes mellitus with hyperglycemia IRON PROFILE Today E11.65 - Type 2 diabetes mellitus with hyperglycemia Vitamin B12 and Folate Today E11.65 - Type 2 diabetes mellitus with hyperglycemia Free T4 (Free Thyroxine) Today E11.65 - Type 2 diabetes mellitus with hyperglycemia Prostate Specific Antigen Scr Today E11.65 - Type 2 diabetes mellitus with hyperglycemia Lipid Panel Today E11.65 - Type 2 diabetes mellitus with hyperglycemia, E78.00 - Pure hypercholesterolemia, unspecified AMB Hemoglobin A1c Today E11.65 - Type 2 diabetes mellitus with hyperglycemia Comprehensive Met. Panel Today E11.65 - Type 2 diabetes mellitus with hyperglycemia Ferritin Today E11.65 - Type 2 diabetes mellitus with hyperglycemia Thyroid Stimulating Hormone Today E11.65 - Type 2 diabetes mellitus with hyperglycemia Creatinine Urine Today E11.65 - Type 2 diabetes mellitus with hyperglycemia Microalbumin, Random (w Creat) Today E11.65 - Type 2 diabetes mellitus with hyperglycemia Hemoglobin A1c Today E11.65 - Type 2 diabetes mellitus with hyperglycemia
[2023-12-11 13:35] VITALS: BP 130/70; PULSE 106; O2SAT 94; BMI 40.7
== END 2023-12-11 14:26 | disposition home or self-care (01) ==
PROVIDERS: PCP Internal Medicine; Visit Provider Internal Medicine
DX: E11.65 Type 2 diabetes mellitus with hyperglycemia (principal); Z96.642 Presence of left artificial hip joint; E66.813 Obesity, class 3; Z68.41 Body mass index [BMI] 40.0-44.9, adult; K21.9 Gastro-esophageal reflux disease without esophagitis; E78.00 Pure hypercholesterolemia, unspecified; M51.369 Other intervertebral disc degeneration, lumbar region without mention of lumbar back pain or lower extremity pain

== ENCOUNTER → 2023-12-11 13:24 | Outpatient (BNVA) | payer OTHER, SELFPAY | PROVIDERS: PCP Internal Medicine; Visit Provider Internal Medicine | DX: Z23 Encounter for immunization (principal); E66.01 Morbid (severe) obesity due to excess calories; E11.65 Type 2 diabetes mellitus with hyperglycemia; K21.9 Gastro-esophageal reflux disease without esophagitis; E78.00 Pure hypercholesterolemia, unspecified; M51.369 Other intervertebral disc degeneration, lumbar region without mention of lumbar back pain or lower extremity pain; Z96.642 Presence of left artificial hip joint | CPT/HCPCS: 83036; 90471; 90656; 99212 ==

== ENCOUNTER 2023-12-15 08:44 | Outpatient (REF) | payer OTHER, SELFPAY | END 2023-12-15 08:45 | disposition home or self-care (01) | LOC: HO.HOSX 08:44 | PROVIDERS: Visit Provider Orthopaedic Surgery | DX: M25.559 Pain in unspecified hip (principal); Z96.642 Presence of left artificial hip joint | CPT/HCPCS: 72170; 99212 ==

== ENCOUNTER 2023-12-15 09:46 | Outpatient (AMB) | payer OTHER, SELFPAY ==
[2023-12-15 09:48] VITALS: BMI 40.6
--- NOTE | 2023-12-15 09:48 | A.OFFVIS_ITS ---
Vital Signs 12/15/23 09:48 Height 5 ft 5 in Weight 244 lb BMI 40.6 Intake Visit Reasons: 6WK PO: L MANE w/NE 09/19/23 Intake Note: Stanislaw is a 62 year old male who presents today for a post operative appointment s/p left MANE done by NE on 09/19/23. Patient reports he is doing well, he mentions pain in his lower back. He continues to attend PT. No concerns today. Book Retailer Required: Yes Book Retailer Services: Book Retailer Offered & Declined Accompanied by: Spouse Allergies No Known Allergies [No Known Allergies*] Allergy (Verified 12/15/23 09:48) HPI HPI 6WK PO: L MANE w/NE 09/19/23: Details: Stanislaw is a 62 year old male who presents today for a post operative appointment s/p left MANE done by NE on 09/19/23. Patient reports he is doing well, he mentions pain in his lower back. He continues to attend PT. No concerns today. [facility] Medical History (Updated 12/11/23 @ 14:19 by Edna Barnes MD) Arthritis Low back pain Mild heartburn Upper back pain on left side Impaired fasting blood sugar Hypercholesterolemia Vitamin D deficiency Obesity Anemia Surgical History History of total left hip replacement History of eye surgery History of colonoscopy Family History Father CVA (cerebral vascular accident) Mother No problems noted. 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 Results Reviewed Results Reviewed: I personally reviewed relevant radiographs. Left MANE in expected post operative position with no hardware complications or evidence of loosening Assessment & Plan Assessment & Plan (1) Status post left hip replacement: Comment: August 2023 Code(s): Z96.642 - Presence of left artificial hip joint Category: Surgical Plan: Stanislaw is doing well 3 months status post left hip arthroplasty. His back pain persists and I recommend he continue to focus on gait training and weight loss and core strengthening with PT. he will follow up in 3 months. Orders: Orders XR pelvis 1-2V Today M25.559 - Pain in unspecified hip Coding Level of Care Code Global (29998) Diagnoses Status post left hip replacement Z96.642
== END 2023-12-15 10:27 | disposition home or self-care (01) ==
PROVIDERS: PCP Internal Medicine; Visit Provider Orthopaedic Surgery
DX: Z96.642 Presence of left artificial hip joint (principal)
CPT/HCPCS: 99024

== ENCOUNTER 2024-02-15 10:26 | Outpatient (REF) | payer OTHER, SELFPAY ==
[2024-02-15 10:42] LABS: MANUAL DIFF FLAG NO
[2024-02-15 11:15] LABS: Basophils Absolute Auto 0.1 X10*3/uL (0.0-0.2); Basophils Percent Auto 0.8 % (0-2); Eosinophils Absolute Auto 0.1 X10*3/uL (0.0-0.4); Hematocrit 43.7 % (42.0-52.0); Hemoglobin 13.6 g/dl (14.0-18.0); Imm Gran Abs Auto 0.04 X10*3/uL (0.00-0.03); Imm Gran Pct Auto 0.6 % (0.0-0.4); Immature Retic Fraction 10.2 % (2.3-13.4); Lymphocytes Absolute Auto 1.5 X10*3/uL (1.2-4.9); Lymphocytes Percent Auto 20.7 % (20-40); Mean Corpuscular HGB Conc 31.1 g/dl (31.0-36.0); Mean Corpuscular Hemoglobin 27.3 pg (27.0-33.0); Mean Corpuscular Volume 87.6 fL (80.0-98.0); Mean Platelet Volume 9.7 fL (9.4-12.4); Monocytes Absolute Auto 0.6 X10*3/uL (0.1-1.2); Monocytes Percent Auto 8.5 % (2-11); Neutrophils Percent Auto 68.4 % (45-73); Platelet Count 295 X10*3/uL (160-400); Red Blood Count 4.99 X10*6/uL (4.60-5.80); Retic HGB Equivalent 30.4 pg (30.0-35.0); Reticulocyte Percent 1.5 % (0.5-1.8); Reticulocytes Absolute 0.075 X10*6/uL (0.026-0.095); White Blood Count 7.3 X10*3/uL (4.8-10.8)
[2024-02-15 11:26] LABS: Estimated Average Glucose 154 mg/dL; Hemoglobin A1C 184.9567 umol/L; Total Hemoglobin (HGBA1C) 3512.9006 umol/L
[2024-02-15 11:50] LABS: Alanine Aminotransferase 22 U/L (0-40); Albumin Level 4.1 g/dL (3.5-5.0); Alkaline Phosphatase 88 U/L (39-117); Anion Gap 9 (12-20); Aspartate Amino Transferase 21 U/L (5-37); Bilirubin Total 0.5 mg/dL (0.0-1.0); Blood Urea Nitrogen 16 mg/dL (9-16); Calcium 9.4 mg/dL (8.4-10.2); Carbon Dioxide 29 mmol/L (22-29); Chloride 108 mmol/L (96-108); Cholesterol 190 mg/dL (<200); Estimated Glomerular Filt Rate > 60; Glucose Random 157 mg/dL (60-115); HDL Cholesterol 56 mg/dL (>40); Iron 76 mcg/dL (45-160); LDL Cholesterol Calculated 119 mg/dL (<100); Percent Iron Saturation 21 % (15-50); Potassium 4.3 mmol/L (3.3-5.1); Sodium 142 mmol/L (135-145); Total Iron Binding Capacity 358 mcg/dL (228-428); Total Protein 7.4 g/dL (6.5-8.0); Triglycerides 75 mg/dL (<150); Unsaturated Iron Binding 282 ug/dL
[2024-02-15 12:09] LABS: Ferritin 61 ng/mL (20-250); Free T4 (Free Thyroxine) 1.14 ng/dL (0.71-1.85); Thyroid Stimulating Hormone 2.04 uIU/mL (0.32-4.0)
[2024-02-15 12:14] LABS: Folate 11.1 ng/mL (> or = 4.0); Prostate Specific Antigen Scr 0.71 ng/mL (<0.05-4.0); Vitamin B12 369 pg/mL (200-900)
[2024-02-15 13:37] LABS: Creatinine Urine 114.13 mg/dL; Microalbum/Creatinine Ratio Ur 17.5 ug/mg cr (<30)
== END 2024-02-15 10:27 | disposition home or self-care (01) ==
LOC: HO.LAB 10:26
PROVIDERS: PCP Internal Medicine; Visit Provider Internal Medicine
DX: E11.65 Type 2 diabetes mellitus with hyperglycemia (principal); E78.00 Pure hypercholesterolemia, unspecified
CPT/HCPCS: 36415; 80053; 80061; 82043; 82570; 82607; 82728; 82746; 83036; 83540; 84153; 84439; 84443; 85025; 85045

== ENCOUNTER 2024-03-18 10:29 | Outpatient (AMB) | payer OTHER, SELFPAY ==
--- NOTE | 2024-03-18 10:30 | A.OFFVIS_ITS ---
Vital Signs 03/18/24 10:31 Height 5 ft 5 in Weight 246 lb BMI 40.9 Intake Visit Reasons: PO: Umm GILLIAM w/NE 09/19/23-3 month F/U Intake Note: Stanislaw is a 62 year old male who presents today for a follow up of his left hip s/p left MANE done by NE on 09/19/23. At his last visit patient reported continued back pain - it was recommended that he continue to work on weight management. core strengthening and physical therapy. He reports that the back pain has improved. Allergies No Known Allergies [No Known Allergies*] Allergy (Verified 03/18/24 10:38) Medication List - Last Reconciled 03/18/24 by Lubna Mckeon RN blood pressure monitor (Blood Pressure Kit) As directed blood sugar diagnostic (FreeStyle Lite Strips) As directed check the BS QD blood-glucose meter (FreeStyle Lite Meter kit) As directed cane As directed fexofenadine 180 mg PO DAILY PRN lancets (FreeStyle Lancets) As directed check BS QD [Raised toilet seat As directed] walker Folding Front wheeled walker HPI HPI PO: L MANE w/GABBY 09/19/23-3 month F/U: Details: Six months status post left hip replacement doing very well. No complaints. Walking normally. Does have some back pain when he stands but this has been improving. He is ready to go back to work. [facility] Medical History (Updated 12/11/23 @ 14:19 by Edna Barnes MD) Arthritis Low back pain Mild heartburn Upper back pain on left side Impaired fasting blood sugar Hypercholesterolemia Vitamin D deficiency Obesity Anemia Surgical History History of total left hip replacement History of eye surgery History of colonoscopy Family History Father CVA (cerebral vascular accident) Mother No problems noted. 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 Normal exam. Results Reviewed Results Reviewed: I personally reviewed relevant radiographs. Left MANE in expected post operative position with no hardware complications or evidence of loosening Assessment & Plan Assessment & Plan (1) Status post left hip replacement: Comment: August 2023 Code(s): Z96.642 - Presence of left artificial hip joint Category: Surgical Plan: Status post left hip replacement doing well. May return to work. May follow up as needed. Dental prophylaxis discussed. Continue gentle daily activities it seems to be helping his overall health in his back pain. Orders: Orders XR pelvis 1-2V Today M25.559 - Pain in unspecified hip Coding Level of Care Code Est Pt Level 3 (35497) Diagnoses Status post left hip replacement Z96.642
[2024-03-18 10:31] VITALS: BMI 40.9
== END 2024-03-18 10:47 | disposition home or self-care (01) ==
PROVIDERS: PCP Internal Medicine; Visit Provider Orthopaedic Surgery
DX: Z47.89 Encounter for other orthopedic aftercare (principal); Z96.642 Presence of left artificial hip joint
CPT/HCPCS: 99212

== ENCOUNTER 2024-04-04 10:01 | Outpatient (AMB) | payer OTHER, SELFPAY ==
--- OUTSIDE RECORDS SUMMARY | 2024-04-04 10:05 | XMS_ITS | Clinical Summary ---
Author Organization [facility] ity Address [address] [place] [address] Care Team Providers Care Packaging Machine Operator Name Role Phone Unavailable Primary Care Provider Unavailabl e Social History Tobacco Use Types Packs/Day Years Used Date Smoking Tobacco: Never Assessed Sex and Gender Information Value Date Recorded Sex Assigned at Not on file Gender Identity Not on file Sexual Orientation Not on file Plan of Treatment Health Maintenance Due Date Last Done Comments DTaP,Tdap,and Td Vaccines (1 - Tdap) 1980 Zoster Vaccines (1 of 2) 12/05/2011 Cholesterol Screening (Lipid Panel) 03/28/2023 Colorectal Cancer Screening: Colonoscopy 03/28/2023 Depression Screening 03/28/2023 HIV Screening 03/28/2023 Hepatitis C Screening 03/28/2023 Social Influencers of Health Screening 03/28/2023 COVID-19 Vaccine (1 - 2023-2 5 season) 2023 Influenza Vaccine (#1) 2023 RSV Immunization Patients 60 + Years Old (1 - 1-dose 75+ series) 2036 HIB Vaccines Aged Out No longer eligi ble based on patient's age to complete this topic HPV Vaccines Aged Out No longer eligi ble based on patient's age to complete this topic Hepatitis A Vaccines Aged Out No long er eligible based on patient's age to complete this topic Hepatitis B Vaccines Aged Out No long er eligible based on patient's age to complete this topic IPV Vaccines Aged Out No longer eligi ble based on patient's age to complete this topic MMR Vaccines Aged Out No longer eligi ble based on patient's age to complete this topic Meningococcal ACWY Vaccine Aged Out N o longer eligible based on patient's age to complete this topic Pneumococcal Vaccine: Pediat rics (0 to 5 Years) and At-Risk Patients (6 to 64 Years) Aged Out No longer eligible b ased on patient's age to complete this topic RSV Immunization Patients Un cece 20 months Aged Out No longer eligible b ased on patient's age to complete this topic Varicella Vaccines Aged Out No longer eligible based on patient's age to complete this topic
[2024-04-04 10:08] VITALS: BP 138/92; PULSE 86; O2SAT 98; BMI 39.6
--- NOTE | 2024-04-04 10:08 | MHC.PC.OV ---
Vital Signs 04/04/24 10:08 Height 5 ft 5 in Weight 238 lb BMI 39.6 BP 138/92 H Blood Pressure Location Lt brachial Position Sitting Pulse 86 Pulse Source Pulse Oximeter Pulse Oximetry (%) 98 Oxygen Delivery Method Room Air Intake Visit Reasons: DM Allergies No Known Allergies [No Known Allergies*] Allergy (Verified 04/04/24 10:09) Tobacco use date assessed: 04/04/24 Dental Screening Dental Screen Date: 04/04/24 Did you have a dental visit in the last 12 months?: Yes Did you have a dental problem in the last 6 months where you did not have access to dental care?: No Was dental information given to patient?: Patient has dentist HPI DM HPI Details Rajinder interpret. Umm hip pain is better The patient is a 63 year old obese male presenting with several chronic conditions requiring management and review. He has a history of osteoarthritis and low back pain, diagnosed in January, with prior treatment including injections in the left glenohumeral joint. He underwent a hip replacement in August 2023, and follow-up imaging shows the left hip arthroplasty in good alignment but moderate degenerative narrowing in the right femoral acetabular joint. The patient's obesity status is improving, with recent weight loss from 244 to 238 pounds, occurring over the past month. He has a history of hypercholesterolemia with an LDL of 119, higher than the target of less than 100. The patient's lipid management is diet-based, as he is currently not on medication. The patient has Type 2 Diabetes Mellitus with current management through diet alone. His recent hemoglobin A1c is 7.0, above the ideal target of less than 6.5 for diabetic patients. He has not been on any diabetic medication and is attempting lifestyle modification. Additionally, he has a history of adrenal insufficiency (hypogonadism) and GERD. The patient reports an improvement in pain related to his left hip, although he continues to experience chronic low back pain. Recent laboratory work from January revealed mild anemia with a hemoglobin count of 13.6, slightly below normal, but improving compared to previous assessments. Kidney and liver function tests returned normal results. Despite lifestyle changes, his blood pressure was last recorded at 140/84, which is above the patient's targeted control values. [facility] Medical History (Updated 04/04/24 @ 10:15 by Edna Barnes MD) Morbid obesity Obesity Arthritis Low back pain Mild heartburn Upper back pain on left side Impaired fasting blood sugar Hypercholesterolemia Vitamin D deficiency Anemia Surgical History History of total left hip replacement History of eye surgery History of colonoscopy Family History Father CVA (cerebral vascular accident) Mother No problems noted. 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 1. Little interest or pleasure in doing things: not at all 2. Feeling down, depressed, or hopeless: not at all 3. Trouble falling or staying asleep, or sleeping too much: not at all 4. Feeling tired or having little energy: not at all 5. Poor appetite or overeating: not at all 6. Feeling bad about yourself - or that you are a failure or have let yourself or your family down: not at all 7. Trouble concentrating on things, such as reading the newspaper or watching television: not at all 8. Moving or speaking so slowly that other people could have noticed. Or the opposite - being so fidgety or restless that you have been moving around a lot more than usual: not at all 9. Thoughts that you would be better off or of hurting yourself in some way: not at all Total score: 0 Depression Screening Interpretation: Negative Depression Screening Done: Yes 41046 - PHQ-9 Billing: Yes Source: Developed by Drs. Jeovany Ivy, Shantelle Avila, Mikhail Cuello and colleagues, with an educational jutsine from [employer]. Thrive Questionnaire Date Thrive assessed: 04/04/24 I am a: Patient What is your living situation today?: I have a steady place to live Within the past 12 months, did the food you bought not last and you didn't have the money to get more?: Never true Within the past 12 months, did you worry whether your food would run out before you got money to buy more?: Never true Do you have trouble paying for medicines?: No Do you have trouble getting transportation to medical appointments?: No Do you have trouble paying your heating and electricity bill?: No Do you have trouble taking care of your child, family member or friend?: No Do you have trouble with day-to-day activities such as bathing, preparing meals, shopping, managing finances, etc.?: No Are you currently unemployed and looking for a job?: No Are you interested in more education?: No Currently or been in a relationship where the following occur: No concerns reported THRIVE Score: 0 AUDIT C Alcohol Use Questionnaire (AUDIT-C) 1. How often do you have a drink containing alcohol?: Monthly or less 2. How many drinks containing alcohol do you have on a typical day when you are drinking?: 1 or 2 3. How often do you have six or more drinks on one occasion?: Never Total Score: 1 Score Reviewed/Action Taken: No MARGARET-7 AMB Questionnaire MARGARET-7 Date MARGARET - 7 assessed: 04/04/24 Feeling nervous, anxious, or on edge: 0 = Not at all Not being able to stop or control worryin = Not at all Worrying too much about different things: 0 = Not at all Trouble relaxin = Not at all Being so restless that it is hard to sit still: 0 = Not at all Becoming easily annoyed or irritable: 0 = Not at all Feeling afraid as if something awful might happen: 0 = Not at all Total MARGARET-7 score (0-4 normal; 5-9 mild; 10-14 moderate; 15-21 severe): 0 Source: Developed by Drs. Jeovany Ivy, Shantelle Avila, Mikhail Cuello and colleagues, with an educational justine from [employer]. Physical exam (Primary Care) Vital Signs: Oxygen Delivery Method Room Air 04/04/24 10:08 Tobacco/Smoking Status: Tobacco use Status Tobacco use date assessed 12/11/23 12/11/23 13:46 Patient Tobacco Use Status Former Tobacco user 12/11/23 13:46 Tobacco use type Cigarette 12/11/23 13:46 e-Cigarette/Vaping Use Never Used 12/11/23 13:46 Depression Screening Interpretation: Negative Thrive Assessment: Date of Thrive Assessment Date Thrive assessed 09/20/23 12/11/23 13:46 Currently or been in a relationship where the following occur: No concerns reported Const General: alert; No acute distress Eyes Conjunctivae: conjunctivae normal Resp Auscultation: clear to auscultation bilaterally Cardio Rate: regular rate Rhythm: regular rhythm GI Inspection: Yes normal to inspection Extrem General: Yes normal to inspection and No edema Coding Level of Care Code Est Pt Level 4 (54666) Complex EM visit Add On G2211 Diagnoses Hypercholesterolemia E78.00 Status post left hip replacement Z96.642 Type 2 diabetes mellitus with hyperglycemia E11.65 GERD (gastroesophageal reflux disease) K21.9 Obesity (BMI 30-39.9) E66.9 Blood pressure elevated without history of HTN R03.0 Additional Codes PHQ-9 - 62104 - PHQ-9 Billing: Yes ([id number]) Assessment & Plan Assessment & Plan (1) Hypercholesterolemia: Code(s): E78.00 - Pure hypercholesterolemia, unspecified Category: Medical (2) Status post left hip replacement: Comment: August 2023 Code(s): Z96.642 - Presence of left artificial hip joint Category: Surgical (3) Type 2 diabetes mellitus with hyperglycemia: Comment: [facility] Code(s): E11.65 - Type 2 diabetes mellitus with hyperglycemia Category: Medical Plan: declined med (4) GERD (gastroesophageal reflux disease): Code(s): K21.9 - Gastro-esophageal reflux disease without esophagitis Category: Medical (5) Obesity (BMI 30-39.9): Code(s): E66.9 - Obesity, unspecified Category: Medical (6) Blood pressure elevated without history of HTN: Code(s): R03.0 - Elevated blood-pressure reading, without diagnosis of hypertension Category: Medical Plan - Discuss weight management and reinforce lifestyle changes including diet and exercise to further facilitate weight loss and alleviate pressures on joints. Continue monitoring weight and encourage dietary adherence. - Review current management strategies for Type 2 Diabetes Mellitus, maintain lifestyle measures with a focus on carbohydrate moderation. Consider future pharmacological intervention should glycemic control not improve markedly in the next three months. - Continue monitoring cholesterol levels with focus on dietary modification; reassess in three months. Encourage discussion on medication initiation if lipid targets are not met. - Monitor blood pressure regularly with a prescribed sphygmomanometer; check 2-3 times weekly and maintain a log for follow-up. Reassess the need for antihypertensive therapy based on home readings. - Reinforce dietary guidelines to reduce sodium intake to manage hypertension and provide education on reading food labels. - Educate patient on signs of worsening anemia and continue monitoring hemoglobin levels. Current levels indicate improvement; retest as clinically indicated. - Continue regular follow-up with orthopedics regarding hip replacement and address arthritic concerns or required pain management. - Ensure patient is aware of current viral illness season, advise preventive measures such as hand hygiene. Orders: Orders Complete Blood Count Auto Diff 3 Months E78.00 - Pure hypercholesterolemia, unspecified Ferritin 3 Months E78.00 - Pure hypercholesterolemia, unspecified Vitamin B12 and Folate 3 Months E78.00 - Pure hypercholesterolemia, unspecified Lipid Panel 3 Months E78.00 - Pure hypercholesterolemia, unspecified Comprehensive Met. Panel 3 Months E78.00 - Pure hypercholesterolemia, unspecified Reticulocyte Count 3 Months E78.00 - Pure hypercholesterolemia, unspecified IRON PROFILE 3 Months E78.00 - Pure hypercholesterolemia, unspecified Hemoglobin A1c 3 Months E78.00 - Pure hypercholesterolemia, unspecified Medications: New blood pressure monitor (Blood Pressure Kit) As directed 1 ea 0RF I10 - Essential (primary) hypertension, R03.0 - Elevated blood-pressure reading, without diagnosis of hypertension
== END 2024-04-04 10:46 | disposition home or self-care (01) ==
LOC: HO.HMCH 10:01
PROVIDERS: PCP Internal Medicine; Visit Provider Internal Medicine
DX: E11.65 Type 2 diabetes mellitus with hyperglycemia (principal); E66.9 Obesity, unspecified; Z68.39 Body mass index [BMI] 39.0-39.9, adult; E78.00 Pure hypercholesterolemia, unspecified; Z96.642 Presence of left artificial hip joint; K21.9 Gastro-esophageal reflux disease without esophagitis; R03.0 Elevated blood-pressure reading, without diagnosis of hypertension

== ENCOUNTER → 2024-04-04 10:01 | Outpatient (BNVA) | payer OTHER, SELFPAY | PROVIDERS: PCP Internal Medicine; Visit Provider Internal Medicine | DX: E11.65 Type 2 diabetes mellitus with hyperglycemia (principal); E78.00 Pure hypercholesterolemia, unspecified; K21.9 Gastro-esophageal reflux disease without esophagitis; E66.9 Obesity, unspecified; R03.0 Elevated blood-pressure reading, without diagnosis of hypertension; Z96.642 Presence of left artificial hip joint | CPT/HCPCS: 96127; 99212 ==

== ENCOUNTER 2024-06-04 10:15 | Outpatient (REF) | payer OTHER, SELFPAY ==
[2024-06-04 10:32] LABS: MANUAL DIFF FLAG NO
[2024-06-04 11:24] LABS: Basophils Absolute Auto 0.1 X10*3/uL (0.0-0.2); Basophils Percent Auto 1.1 % (0-2); Eosinophils Absolute Auto 0.1 X10*3/uL (0.0-0.4); Hematocrit 46.6 % (42.0-52.0); Hemoglobin 14.5 g/dl (14.0-18.0); Imm Gran Abs Auto 0.02 X10*3/uL (0.00-0.03); Imm Gran Pct Auto 0.4 % (0.0-0.4); Immature Retic Fraction 16.6 % (2.3-13.4); Lymphocytes Absolute Auto 1.3 X10*3/uL (1.2-4.9); Lymphocytes Percent Auto 23.3 % (20-40); Mean Corpuscular HGB Conc 31.1 g/dl (31.0-36.0); Mean Corpuscular Hemoglobin 27.9 pg (27.0-33.0); Mean Corpuscular Volume 89.6 fL (80.0-98.0); Mean Platelet Volume 9.9 fL (9.4-12.4); Monocytes Absolute Auto 0.5 X10*3/uL (0.1-1.2); Monocytes Percent Auto 8.4 % (2-11); Neutrophils Absolute Auto 3.7 x10*3/uL (2.0-8.3); Neutrophils Percent Auto 64.8 % (45-73); Platelet Count 281 X10*3/uL (160-400); Red Cell Distribution Width 12.3 % (11.0-16.0); Retic HGB Equivalent 30.4 pg (30.0-35.0); Reticulocyte Percent 1.9 % (0.5-1.8); Reticulocytes Absolute 0.101 X10*6/uL (0.026-0.095); White Blood Count 5.6 X10*3/uL (4.8-10.8)
[2024-06-04 11:30] LABS: Estimated Average Glucose 131 mg/dL; Hemoglobin A1C 172.2261 umol/L; Hemoglobin A1c % 6.2 % (<6.0); Total Hemoglobin (HGBA1C) 3858.1843 umol/L
--- OUTSIDE RECORDS SUMMARY | 2024-06-04 12:06 | XMS_ITS | Clinical Summary ---
Author Organization [facility] Address [address] [place] [address] Care Team Providers Care Engine Service Repairer Name Role Phone Unavailable Primary Care Provider Unavailabl e Social History Tobacco Use Types Packs/Day Years Used Date Smoking Tobacco: Never Assessed Sex and Gender Information Value Date Recorded Sex Assigned at Not on file Legal Sex Male 12:22 AM EST Gender Identity Not on file Sexual Orientation Not on file Plan of Treatment Health Maintenance Due Date Last Done Comments DTaP,Tdap,and Td Vaccines (1 - Tdap) 1980 Pneumococcal Vaccine: 50+ Ye ars (1 of 1 - PCV) 12/05/2011 Zoster Vaccines (1 of 2) 12/05/2011 Cholesterol Screening (Lipid Panel) 03/28/2023 Colorectal Cancer Screening: Colonoscopy 03/28/2023 Depression Screening 03/28/2023 HIV Screening 03/28/2023 Hepatitis C Screening 03/28/2023 Social Influencers of Health Screening 03/28/2023 COVID-19 Vaccine ( - 2023-2 5 season) 2023 Influenza Vaccine (#1) 2023 RSV Immunization Adult Patie nts (1 - 1-dose 75+ series) 2036 HIB [...] patient's age to complete this topic Meningococcal B Vaccine Aged Out No l onger eligible based on patient's age to complete [...]
[2024-06-04 12:09] LABS: Creatinine Urine 159.04 mg/dL
[2024-06-04 12:41] LABS: Alanine Aminotransferase 19 U/L (0-40); Albumin Level 4.2 g/dL (3.5-5.0); Alkaline Phosphatase 87 U/L (39-117); Anion Gap 11 (12-20); Aspartate Amino Transferase 26 U/L (5-37); Bilirubin Total 0.6 mg/dL (0.0-1.0); Blood Urea Nitrogen 13 mg/dL (9-16); Calcium 9.6 mg/dL (8.4-10.2); Carbon Dioxide 25 mmol/L (22-29); Chloride 108 mmol/L (96-108); Cholesterol 206 mg/dL (<200); Estimated Glomerular Filt Rate > 60; Glucose Random 134 mg/dL (60-115); HDL Cholesterol 45 mg/dL (>40); Iron 78 mcg/dL (45-160); LDL Cholesterol Calculated 136 mg/dL (<100); Percent Iron Saturation 22 % (15-50); Potassium 4.3 mmol/L (3.3-5.1); Sodium 140 mmol/L (135-145); Total Iron Binding Capacity 353 mcg/dL (228-428); Total Protein 7.3 g/dL (6.5-8.0); Triglycerides 127 mg/dL (<150); Unsaturated Iron Binding 275 ug/dL
[2024-06-04 13:02] LABS: Ferritin 81 ng/mL (20-250)
[2024-06-04 13:10] LABS: Folate 12.1 ng/mL (> or = 4.0); Vitamin B12 494 pg/mL (200-900)
== END 2024-06-04 10:16 | disposition home or self-care (01) ==
LOC: HO.LAB 10:15
PROVIDERS: PCP Internal Medicine; Visit Provider Internal Medicine
DX: E11.65 Type 2 diabetes mellitus with hyperglycemia (principal); E78.00 Pure hypercholesterolemia, unspecified
CPT/HCPCS: 36415; 80053; 80061; 82570; 82607; 82728; 82746; 83036; 83540; 85025; 85045

== ENCOUNTER 2024-10-29 13:42 | Outpatient (AMB) | payer OTHER, SELFPAY ==
[2024-10-29 13:46] VITALS: BP 134/72; PULSE 81; O2SAT 96; BMI 38.6
--- NOTE | 2024-10-29 13:46 | MHC.PC.OV ---
Vital Signs 10/29/24 13:46 Height 5 ft 5 in Weight 232 lb BMI 38.6 BP 134/72 Blood Pressure Location Lt brachial Position Sitting Pulse 81 Pulse Source Pulse Oximeter Pulse Oximetry (%) 96 Oxygen Delivery Method Room Air Intake Visit Reasons: DM , Cholesterol and Blood pressure elevation Allergies No Known Allergies (No Known Allergies*) Allergy (Verified 10/29/24 13:47) Tobacco use date assessed: 04/04/24 Dental Screening Dental Screen Date: 04/04/24 [facility] Medical History (Updated 04/04/24 @ 10:15 by Edna Barnes MD) Morbid obesity Obesity Arthritis Low back pain Mild heartburn Upper back pain on left side Impaired fasting blood sugar Hypercholesterolemia Vitamin D deficiency Anemia Surgical History History of total left hip replacement History of eye surgery History of colonoscopy Family History Father CVA (cerebral vascular accident) Mother No problems noted. 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 1. Little interest or pleasure in doing things: not at all 2. Feeling down, depressed, or hopeless: not at all 3. Trouble falling or staying asleep, or sleeping too much: not at all 4. Feeling tired or having little energy: not at all 5. Poor appetite or overeating: not at all 6. Feeling bad about yourself - or that you are a failure or have let yourself or your family down: not at all 7. Trouble concentrating on things, such as reading the newspaper or watching television: not at all 8. Moving or speaking so slowly that other people could have noticed. Or the opposite - being so fidgety or restless that you have been moving around a lot more than usual: not at all 9. Thoughts that you would be better off or of hurting yourself in some way: not at all Total score: 0 Depression Screening Interpretation: Negative Depression Screening Done: Yes Source: Developed by Drs. Jeovany Ivy, Shantelle Avila, Mikhail Cuello and colleagues, with an educational jsutine from [employer]. Thrive Questionnaire Date Thrive assessed: 04/04/24 AUDIT C Alcohol Use Questionnaire (AUDIT-C) 1. How often do you have a drink containing alcohol?: Monthly or less 2. How many drinks containing alcohol do you have on a typical day when you are drinking?: 1 or 2 3. How often do you have six or more drinks on one occasion?: Never Total Score: 1 MARGARET-7 AMB Questionnaire MARGARET-7 Date MARGARET - 7 assessed: 04/04/24 Source: Developed by Drs. Jeovany Ivy, Shantelle Avila, Mikhail Cuello and colleagues, with an educational justine from [employer]. Physical exam (Primary Care) Vital Signs: Last Vital Signs Pulse 81 10/29/24 13:46 BP 134/72 10/29/24 13:46 Pulse Ox 96 10/29/24 13:46 Oxygen Delivery Method Room Air 10/29/24 13:46 BMI result Body Mass Index 38.6 Tobacco/Smoking Status: Tobacco use Status Tobacco use date assessed 04/04/24 10/29/24 13:47 Patient Tobacco Use Status Former Tobacco user 10/29/24 13:47 Tobacco use type Cigarette 10/29/24 13:47 e-Cigarette/Vaping Use Never Used 10/29/24 13:47 PHQ-9: PHQ-9 Score PHQ-9: Total score 0 10/29/24 14:00 Depression Screening Interpretation: Negative Thrive Assessment: Date of Thrive Assessment Date Thrive assessed 04/04/24 10/29/24 13:47 Const General: alert; No acute distress Eyes Conjunctivae: conjunctivae normal Resp Auscultation: clear to auscultation bilaterally Cardio Rate: regular rate Rhythm: regular rhythm GI Inspection: Yes normal to inspection Extrem General: Yes normal to inspection and No edema Results AMB Hemoglobin A1c AMB Hemoglobin A1c 6.4 % Last Edit by Sophie Mckeon CMA on 10/29/24 14:01 Results Reviewed Results Reviewed: Laboratory Last Values Hgb A1c (Clinic) 6.4 % (4.0-6.0) H 10/29/24 13:47 Coding Level of Care Code Est Pt Level 4 (98349) Complex EM visit Add On G2211 Diagnoses Type 2 diabetes mellitus with hyperglycemia E11.65 Hypercholesterolemia E78.00 Obesity (BMI 30-39.9) E66.9 GERD (gastroesophageal reflux disease) K21.9 Assessment & Plan Assessment & Plan (1) Type 2 diabetes mellitus with hyperglycemia: Comment: [facility] Code(s): E11.65 - Type 2 diabetes mellitus with hyperglycemia Category: Medical Plan: Decrease the amount of carbohydrate intake, pasta, bread, rice and potatoes are all sugar and that is aside from all the sweet stuff, remember that fruits are good but they are Sweet also. Hemoglobin A1c goal of less than 6.5. Patient is diet controlled (2) Hypercholesterolemia: Code(s): E78.00 - Pure hypercholesterolemia, unspecified Category: Medical Plan: Avoid fried foods, chicken skin, eggs, butter margarine, pastries and meat. Be it pork or beef they have a lot of cholesterol Melia blood work showing LDL more than 100. Needs to have the retest. (3) Obesity (BMI 30-39.9): Code(s): E66.9 - Obesity, unspecified Category: Medical Plan: Diet and exercise (4) GERD (gastroesophageal reflux disease): Code(s): K21.9 - Gastro-esophageal reflux disease without esophagitis Category: Medical Plan: Avoid the foods that causes that usually spicy foods, tomato products, juices, coffee, soda and foods that your sensitive to. After eating do not lie down, allow 3-4 hours before in lie down. And keep the head of bed above 30 degrees to avoid the acid from going up. Plan History of Present Illness The patient is a 63-year-old male presenting for a follow-up visit. He has a history of hypercholesterolemia, with recent blood work in May showing an LDL cholesterol level of 136 mg/dL, which is above the target of less than 100 mg/dL. A repeat blood test has been requested to monitor cholesterol levels, as elevated cholesterol can increase the risk of cardiovascular events. The patient also has diabetes mellitus, which is currently diet-controlled. His hemoglobin A1c was 6.2 in May, and a recent check showed it at 6.4, both within the target range of less than 6.5. He underwent a left hip replacement in August 2023 and has lumbar degenerative disc disease. His last colonoscopy was in 2017, indicating a need for updated screening. Health Maintenance - Colonoscopy last performed in 2017, needs updating - Annual eye examinations recommended due to diabetes - Shingrix vaccine discussed for shingles prevention Social History - Patient resides in [place] and prefers local healthcare services. Review of Systems - Gastrointestinal: Denies constipation, reports normal bowel movements - Genitourinary: Denies urinary problems - General: Reports feeling good, denies nausea, vomiting, or chest pain Physical Exam - Cardiovascular: Blood pressure is good - Respiratory: Breath sounds assessed Results - Labs: May blood work showed normal blood count, electrolytes, renal function, and liver function tests - Labs: Hemoglobin A1c was 6.2 in May and 6.4 recently - Labs: LDL cholesterol was 136 mg/dL in May Plan Patient was informed and verbally consented to the use of an ambient scribe for clinic note documentation during this visit. 1. Hypercholesterolemia The patient's LDL cholesterol was 136 mg/dL in May, which is above the target of less than 100 mg/dL. A repeat blood test has been requested to monitor cholesterol levels, and if the levels remain elevated, treatment will be considered to prevent cardiovascular events. 2. Diabetes Mellitus The patient's diabetes is currently diet-controlled, with a hemoglobin A1c of 6.2 in May and 6.4 recently, both within the target range of less than 6.5. Continued monitoring of blood sugar levels and adherence to dietary management is advised. 3. Lumbar Degenerative Disc Disease The patient has lumbar degenerative disc disease, which is being monitored as part of his ongoing care. 4. Status Post Left Hip Replacement The patient is status post left hip replacement performed in August 2023, with no current complications reported. Discussion Notes During the visit, we discussed the importance of monitoring cholesterol levels due to the elevated LDL cholesterol of 136 mg/dL observed in May. I advised a repeat blood test to assess current levels and discussed potential treatment options if levels remain high to prevent cardiovascular events. We also reviewed the patient's diabetes management, noting that his hemoglobin A1c is within the target range, and emphasized the importance of continued dietary control. The patient was informed about the need for regular eye examinations due to diabetes and the availability of the Shingrix vaccine for shingles prevention. Patient Instructions - Schedule a repeat blood test to check cholesterol levels. - Continue with dietary management to control blood sugar levels. - Schedule regular eye examinations due to diabetes. - Consider receiving the Shingrix vaccine for shingles prevention. Orders: Orders AMB Hemoglobin A1c Today Z13.9 - Encounter for screening, unspecified Complete Blood Count Auto Diff Today E11.65 - Type 2 diabetes mellitus with hyperglycemia Prostate Specific Antigen Scr Today E11.65 - Type 2 diabetes mellitus with hyperglycemia Comprehensive Met. Panel Today E11.65 - Type 2 diabetes mellitus with hyperglycemia Lipid Panel Today E11.65 - Type 2 diabetes mellitus with hyperglycemia, E78.00 - Pure hypercholesterolemia, unspecified Thyroid Stimulating Hormone Today E11.65 - Type 2 diabetes mellitus with hyperglycemia Free T4 (Free Thyroxine) Today E11.65 - Type 2 diabetes mellitus with hyperglycemia Vitamin B12 and Folate Today E11.65 - Type 2 diabetes mellitus with hyperglycemia Creatinine Urine Today E11.65 - Type 2 diabetes mellitus with hyperglycemia Microalbumin, Random (w Creat) Today E11.65 - Type 2 diabetes mellitus with hyperglycemia Hemoglobin A1c Today E11.65 - Type 2 diabetes mellitus with hyperglycemia Referrals Podiatry Referral E11.65 - Type 2 diabetes mellitus with hyperglycemia
--- OUTSIDE RECORDS SUMMARY | 2024-10-29 14:57 | XMS_ITS | Clinical Summary ---
[facility] Address [address] [place] [address] Care Team Providers Care Processing Assistant Name Role Phone Unavailable Primary Care Provider [...] Panel) 03/28/2023 Colorectal Cancer Screening: Colonoscopy 03/28/2023 HIV Screening 03/28/2023 Hepatitis C Screening 03/28/2023 Social Influencers of Health Screening 03/28/2023 Depression Screening 02/28/2024 COVID-19 Vaccine ( - 2023-2 5 season) 2024 Influenza Vaccine (#1) 2024 RSV Immunization Adult Patie nts (1 - [...]
== END 2024-10-29 14:08 | disposition home or self-care (01) ==
LOC: HO.HMCH 13:43
PROVIDERS: PCP Internal Medicine; Visit Provider Internal Medicine
DX: E11.65 Type 2 diabetes mellitus with hyperglycemia (principal); E78.00 Pure hypercholesterolemia, unspecified; E66.9 Obesity, unspecified; Z68.38 Body mass index [BMI] 38.0-38.9, adult; K21.9 Gastro-esophageal reflux disease without esophagitis

== ENCOUNTER → 2024-10-29 13:42 | Outpatient (BNVA) | payer OTHER, SELFPAY | PROVIDERS: PCP Internal Medicine; Visit Provider Internal Medicine | DX: E11.65 Type 2 diabetes mellitus with hyperglycemia (principal); E78.00 Pure hypercholesterolemia, unspecified; E66.9 Obesity, unspecified; K21.9 Gastro-esophageal reflux disease without esophagitis; M51.369 Other intervertebral disc degeneration, lumbar region without mention of lumbar back pain or lower extremity pain; Z68.38 Body mass index [BMI] 38.0-38.9, adult; Z96.642 Presence of left artificial hip joint | CPT/HCPCS: 83036; 99212 ==

== ENCOUNTER 2024-11-27 10:22 | Outpatient (AMB) | payer OTHER, SELFPAY ==
[2024-11-27 10:33] VITALS: BMI 38.6
--- NOTE | 2024-11-27 10:33 | MHC.OFFVIS ---
Vital Signs 11/27/24 10:33 Height 5 ft 5 in Weight 232 lb BMI 38.6 Intake Visit Reasons: New PT- Diabetic foot exam Intake Note: Stanislaw is a 63 year old male who presents today as a new patient for a diabetic foot exam. Patient was seen by his PCP on 10/29/24 where his A1c was checked and read 6.4 he currently has not checked his sugars. Patient denied numbness and tingling in his feet. He reports he has not experienced any nausea, vomiting, headaches, or dizziness recently. Patient has concerns in regards to his left hallux on the medial border Mortician Supplies Sales Representative Required: Yes Mortician Supplies Sales Representative Services: Mortician Supplies Sales Representative Present Mortician Supplies Sales Representative Name: [id number] Allergies No Known Allergies (No Known Allergies*) Allergy (Verified 11/27/24 10:33) HPI HPI New PT- Diabetic foot exam: Details: 63-year-old male with past medical history of prediabetes presents for left big toe infection. He states that he noticed 2-3 weeks ago that his nail was becoming discolored and he was concerned for fungal infection. He excised the corner of his nail however he noticed a foul smell and some purulent drainage. Since then, he has not had any pain, swelling, redness, drainage, or malodor. He is here for evaluation to rule out an infection. [facility] Medical History (Updated 11/27/24 @ 12:45 by Jarret Alcala DPM) Morbid obesity Obesity Arthritis Low back pain Mild heartburn Upper back pain on left side Impaired fasting blood sugar Hypercholesterolemia Vitamin D deficiency Anemia Surgical History History of total left hip replacement History of eye surgery History of colonoscopy Family History Father CVA (cerebral vascular accident) Mother No problems noted. 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 Derm: Left hallux medial nail border with yellow/white discoloration, mild subungual debris. Medial border left hallux mildly ingrown, however no erythema, drainage, or clinical signs of infection. Neuro: Protective sensation grossly intact to bilateral lower extremities. MSK: No pain on palpation to left hallux medial border Results Reviewed Results Reviewed: Laboratory Tests 02/15/24 10/29/24 10:41 13:47 Hemoglobin A1c % 7.0 H Hgb A1c (Clinic) 6.4 H Assessment & Plan Assessment & Plan (1) Paronychia of great toe, left: Code(s): L03.032 - Cellulitis of left toe Category: Medical Plan: Discussed that patient may require a partial nail avulsion in the near future however due to no pain or infection symptoms at this time, he was recommended close monitoring and to return if he notices any irritation or signs of infection. He was recommended soaking his toe without signs salt soaks for the next week. He was instructed not to trim his toenail until his next visit in case he will be required to undergo a partial nail avulsion. Follow up in 1 month (2) Tinea unguium: Code(s): B35.1 - Tinea unguium Category: Medical Plan: Discussed treatment options including topical treatment versus oral antifungal medications. Rx Ciclopirox Patient was counseled on the importance of anti-fungal foot hygiene, including daily washing and thorough drying of feet, regular changing of socks, and use of breathable footwear. Recommended antifungal sprays shoes. Education provided on keeping toenails trimmed and clean to reduce risk of fungal infections. Preventive strategies discussed to minimize recurrence of fungal infections. (3) Type 2 diabetes mellitus with hyperglycemia: Comment: [facility] Code(s): E11.65 - Type 2 diabetes mellitus with hyperglycemia Category: Medical Plan: Risk Stratification: No current ulceration, infection, or pre-ulcerative lesion. No loss of protective sensation or peripheral arterial disease. No plans for further testing/referrals for non-invasive vascular studies. Patient is at low risk for diabetic foot complications at this time. Recommendations: Continue routine foot care and daily self-inspection. Recommend moisturizing daily. Recommend supportive proper fitting shoe-wear. The patient may require diabetic shoes in the future. Reinforced diabetic foot education and risks from peripheral neuropathy. Medications: New ciclopirox 8% Applied to fungal toenails daily. Remove buildup at the end of the week. 1 appl topical BEDTIME 6.6 mL 3RF fungal toe nail 4 months B35.1 - Tinea unguium Coding Level of Care Code New Pt Level 3 (72079) Diagnoses Paronychia of great toe, left L03.032 Tinea unguium B35.1 Type 2 diabetes mellitus with hyperglycemia E11.65
--- OUTSIDE RECORDS SUMMARY | 2024-11-27 11:49 | XMS_ITS | Clinical Summary ---
Author Organization [facility] ity Address [address] [place] [address] Care Team Providers Care Textile Conversion Manager Name Role Phone Unavailable Primary Care Provider Unavailabl e Social History Tobacco Use Types Packs/Day Years Used Date Smoking Tobacco: Never Assessed Sex and Gender Information Value Date Recorded Sex Assigned at Not on file Legal Sex Male 12:22 AM EST Gender Identity Not on file Sexual Orientation Not on file Plan of Treatment Health Maintenance Due Date Last Done Comments Colorectal Cancer Screening: Colonoscopy 1961 DTaP,Tdap,and Td Vaccines (1 - Tdap) 1980 Pneumococcal Vaccine: 50+ Ye ars (1 of 1 - PCV) 12/05/2011 Zoster Vaccines (1 of 2) 12/05/2011 Cholesterol Screening (Lipid Panel) 03/28/2023 HIV Screening 03/28/2023 Hepatitis C Screening 03/28/2023 Social Influencers of Health Screening 03/28/2023 Depression Screening 02/28/2024 COVID-19 Vaccine (1 - 2023-2 5 season) 2024 Influenza Vaccine [...]
== END 2024-11-27 10:55 | disposition home or self-care (01) ==
LOC: HO.HPODS 10:22
PROVIDERS: PCP Internal Medicine; Visit Provider Student in an Organized Health Care Education/Training Program
DX: L03.032 Cellulitis of left toe (principal); B35.1 Tinea unguium; E11.65 Type 2 diabetes mellitus with hyperglycemia
CPT/HCPCS: 99204

== ENCOUNTER → 2024-11-27 10:22 | Outpatient (BNVA) | payer OTHER, SELFPAY | PROVIDERS: PCP Internal Medicine; Visit Provider Student in an Organized Health Care Education/Training Program | DX: L03.032 Cellulitis of left toe (principal); B35.1 Tinea unguium; E11.65 Type 2 diabetes mellitus with hyperglycemia | CPT/HCPCS: 99202 ==

== ENCOUNTER 2024-12-30 10:42 | Outpatient (AMB) | payer OTHER, SELFPAY ==
[2024-12-30 10:52] VITALS: BMI 38.6
--- NOTE | 2024-12-30 10:52 | A.OFFVIS_ITS ---
Vital Signs 12/30/24 10:52 Height 5 ft 5 in Weight 232 lb BMI 38.6 Intake Visit Reasons: fu Diabetic foot exam Intake Note: Stanislaw is a 64 year old male who presents today for a follow up on his paronychia of his left great toe and diabetic foot exam. Pt states he has been using the ciclopirox medication as prescribed and notes his toenail has darkened. He denies experiencing pain Allergies No Known Allergies (No Known Allergies*) Allergy (Verified 12/30/24 10:52) HPI HPI fu Diabetic foot exam: Details: 63-year-old male with past medical history of pre-diabetes presents for left big toe infection. He states he has been applying a topical ointment prescribed last visit. Has not had any pain since then. Has not noticed any new drainage or infection. History: He states that he noticed in October/November his nail was becoming discolored and he was concerned for fungal infection. He excised the corner of his nail however he noticed a foul smell and some purulent drainage. Since then, he has not had any pain, swelling, redness, drainage, or malodor. He is here for evaluation to rule out an infection. [facility] Medical History (Updated 11/27/24 @ 12:45 by Jarret Alcala DPM) Morbid obesity Obesity Arthritis Low back pain Mild heartburn Upper back pain on left side Impaired fasting blood sugar Hypercholesterolemia Vitamin D deficiency Anemia Surgical History History of total left hip replacement History of eye surgery History of colonoscopy Family History Father CVA (cerebral vascular accident) Mother No problems noted. 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 Derm: Left hallux medial nail border with 1 persistent patch of yellow/white discoloration, mild subungual debris. No erythema or clinical signs of infection Neuro: Protective sensation grossly intact to bilateral lower extremities. MSK: No pain on palpation to left hallux medial border Assessment & Plan Assessment & Plan (1) Tinea unguium: Code(s): B35.1 - Tinea unguium Category: Medical Plan: * Continue topical ciclopirox ointment for 1-2 more months * Patient was counseled on the importance of anti-fungal foot hygiene, including daily washing and thorough drying of feet, regular changing of socks, and use of breathable footwear. Recommended antifungal sprays shoes. Education provided on keeping toenails trimmed and clean to reduce risk of fungal infections. Preventive strategies discussed to minimize recurrence of fungal infections. (2) Type 2 diabetes mellitus with hyperglycemia: Comment: [facility] Code(s): E11.65 - Type 2 diabetes mellitus with hyperglycemia Category: Medical Plan: Risk Stratification: No current ulceration, infection, or pre-ulcerative lesion. No loss of protective sensation or peripheral arterial disease. No plans for further testing/referrals for non-invasive vascular studies. Patient is at low risk for diabetic foot complications at this time. Recommendations: Continue routine foot care and daily self-inspection. Recommend moisturizing daily. Recommend supportive proper fitting shoe-wear. The patient may require diabetic shoes in the future. Reinforced diabetic foot education and risks from peripheral neuropathy. Coding Level of Care Code Est Pt Level 3 (16514) Diagnoses Tinea unguium B35.1 Type 2 diabetes mellitus with hyperglycemia E11.65 Time Spent (min) 25
--- OUTSIDE RECORDS SUMMARY | 2024-12-30 13:05 | XMS_ITS | Clinical Summary ---
Author Organization [facility] ity Address [address] [place] [address] Care Team Providers Care Plastics Fabricator Or Welder Name Role Phone Unavailable Primary Care Provider [...]
== END 2024-12-30 11:08 | disposition home or self-care (01) ==
LOC: HO.HPODS 10:42
PROVIDERS: PCP Internal Medicine; Visit Provider Student in an Organized Health Care Education/Training Program
DX: B35.1 Tinea unguium (principal); E11.65 Type 2 diabetes mellitus with hyperglycemia
CPT/HCPCS: 99213

== ENCOUNTER → 2024-12-30 10:42 | Outpatient (BNVA) | payer OTHER, SELFPAY | PROVIDERS: PCP Internal Medicine; Visit Provider Student in an Organized Health Care Education/Training Program | DX: B35.1 Tinea unguium (principal); E11.65 Type 2 diabetes mellitus with hyperglycemia | CPT/HCPCS: 99212 ==

== ENCOUNTER 2025-01-29 14:57 | Outpatient (AMB) | payer OTHER, SELFPAY ==
--- NOTE | 2025-01-29 15:24 | A.OFFVIS_ITS ---
Intake Visit Reasons: Fungal nail Intake Note: Stanislaw is a 64 year old male who presents today for a follow up of his left foot fungal nail. Patient reports no changes, even with applying the nail treatment. Cast Iron Drain Pipe Layer Services: Cast Iron Drain Pipe Layer Present ([place]) Allergies No Known Allergies (No Known Allergies*) Allergy (Verified 01/29/25 15:38) HPI HPI Fungal nail: Details: 63-year-old male with past medical history of pre-diabetes presents for left big toe infection. He states he has been applying the anti-fungal medication prescribed last visit. Has not had any pain since then. Has not noticed any new drainage or infection. History: He states that he noticed in October/November his nail was becoming discolored and he was concerned for fungal infection. He excised the corner of his nail however he noticed a foul smell and some purulent drainage. Since then, he has not had any pain, swelling, redness, drainage, or malodor. He is here for evaluation to rule out an infection. [facility] Medical History (Updated 01/29/25 @ 15:52 by Jarret Alcala DPM) Morbid obesity Obesity Arthritis Low back pain Mild heartburn Upper back pain on left side Impaired fasting blood sugar Hypercholesterolemia Vitamin D deficiency Anemia Surgical History History of total left hip replacement History of eye surgery History of colonoscopy Family History Father CVA (cerebral vascular accident) Mother No problems noted. 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 Derm: Left hallux medial nail border with nearly resolved patch of yellow discoloration and brittle nail change. No sub-ungual debris. No erythema or clinical signs of infection Neuro: Protective sensation grossly intact to bilateral lower extremities. MSK: No pain on palpation to left hallux medial border Assessment & Plan Assessment & Plan (1) Tinea unguium: Code(s): B35.1 - Tinea unguium Category: Medical Plan: * Continue topical ciclopirox ointment for 1-2 more months * Patient was counseled on the importance of anti-fungal foot hygiene, including daily washing and thorough drying of feet, regular changing of socks, and use of breathable footwear. Recommended antifungal sprays shoes. Education provided on keeping toenails trimmed and clean to reduce risk of fungal infections. Preventive strategies discussed to minimize recurrence of fungal infections. * Follow up in 2 months (2) Type 2 diabetes mellitus with hyperglycemia: Comment: [facility] Code(s): E11.65 - Type 2 diabetes mellitus with hyperglycemia Category: Medical Qualifiers: Diabetes mellitus residential insulin use: without residential use Qualified Code(s): E11.65 - Type 2 diabetes mellitus with hyperglycemia Plan: Risk Stratification: No current ulceration, infection, or pre-ulcerative lesion. No loss of protective sensation or peripheral arterial disease. No plans for further testing/referrals for non-invasive vascular studies. Patient is at low risk for diabetic foot complications at this time. Recommendations: Continue routine foot care and daily self-inspection. Recommend moisturizing daily. Recommend supportive proper fitting shoe-wear. The patient may require diabetic shoes in the future. Reinforced diabetic foot education and risks from peripheral neuropathy. Coding Level of Care Code Est Pt Level 3 (33240) Diagnoses Tinea unguium B35.1 Type 2 diabetes mellitus with hyperglycemia, without long-term current use of insulin E11.65 Diabetes mellitus long haul truck driver insulin use: without long haul truck driver use Time Spent (min) 20
--- OUTSIDE RECORDS SUMMARY | 2025-01-29 17:58 | XMS_ITS | Clinical Summary ---
Author Organization Adel[facility] [employer] [facility] ity Address [address] [place] [address] Care Team Providers Care Custodian Manager Name Role Phone Unavailable Primary Care [...] Depression Screening 02/28/2024 COVID-19 Vaccine (1 - 2024-2 6 season) 2024 Influenza Vaccine (#1) 2024 RSV [...]
== END 2025-01-29 15:49 | disposition home or self-care (01) ==
LOC: HO.HPODS 14:58
PROVIDERS: PCP Internal Medicine; Visit Provider Student in an Organized Health Care Education/Training Program
DX: B35.1 Tinea unguium (principal); E11.65 Type 2 diabetes mellitus with hyperglycemia
CPT/HCPCS: 99213

== ENCOUNTER → 2025-01-29 14:57 | Outpatient (BNVA) | payer OTHER, SELFPAY | PROVIDERS: PCP Internal Medicine; Visit Provider Student in an Organized Health Care Education/Training Program | DX: B35.1 Tinea unguium (principal); E11.65 Type 2 diabetes mellitus with hyperglycemia | CPT/HCPCS: 99212 ==